=== PATIENT | female | born 1960 | race Caucasian/White ===

== ENCOUNTER 2024-08-14 22:00 | Outpatient (RCR) | payer OTHER, BC, SELFPAY ==
[2024-08-14 22:42] LABS: Alanine Aminotransferase* 14 U/L (4-35); Aspartate Amino Transferase* 26 U/L (12-35); Creatinine* 0.8 mg/dL (0.5-1.5); Estimated Glomerular Filt Rate 82 ml/min
[2024-08-14 22:56] LABS: C Reactive Protein* < 0.5 mg/dL (0.5-1.0)
[2024-08-15 07:00] LABS: Hematocrit* 40.7 % (33.0-51.0); Hemoglobin* 13.6 gm/dL (12.0-16.0); Mean Corpuscular HGB Conc 33 gm/dL (32-36); Mean Corpuscular Hemoglobin 33 pg (26-34); Mean Corpuscular Volume 98 fL (80-100); Red Blood Count* 4.15 m/uL (4.00-5.20); White Blood Count* 4.57 K/uL (4.50-11.00)
[2024-08-15 07:07] LABS: Slide Review Reflex No
== END 2025-07-31 23:59 | disposition home or self-care (01) ==
LOC: NPINS 22:00
PROVIDERS: Visit Provider Internal Medicine Rheumatology
DX: M06.00 Rheumatoid arthritis without rheumatoid factor, unspecified site (principal); Z79.899 Other long term (current) drug therapy
CPT/HCPCS: 82565; 84450; 84460; 85027; 86140

== ENCOUNTER 2024-11-20 13:31 | Outpatient (CLI) | payer OTHER, BC, SELFPAY ==
[2024-11-20 17:01] LABS: Hematocrit 43.2 % (33.0-51.0); Hemoglobin* 14.2 gm/dL (12.0-16.0); Mean Corpuscular HGB Conc 33 gm/dL (32-36); Mean Corpuscular Hemoglobin 32 pg (26-34); Mean Corpuscular Volume 99 fL (80-100); Platelet Count* 281 K/uL (140-440); Red Blood Count 4.38 m/uL (4.00-5.20); White Blood Count* 4.37 K/uL (4.50-11.00)
[2024-11-20 17:13] LABS: Alanine Aminotransferase* 14 U/L (4-35); Aspartate Amino Transferase* 21 U/L (12-35); Creatinine* 0.7 mg/dL (0.5-1.5); Estimated Glomerular Filt Rate 96 ml/min
[2024-11-20 17:19] LABS: C Reactive Protein* < 0.5 mg/dL (0.5-1.0); Slide Review Reflex No
== END 2024-11-20 13:32 | disposition home or self-care (01) ==
LOC: NPINS 13:33
PROVIDERS: PCP Nurse Practitioner Family; Visit Provider Internal Medicine Rheumatology
DX: M05.9 Rheumatoid arthritis with rheumatoid factor, unspecified (principal); Z79.899 Other long term (current) drug therapy
CPT/HCPCS: 82565; 84450; 84460; 85027; 86140

== ENCOUNTER 2025-03-27 10:00 | Outpatient (CLI) | payer OTHER, BC, SELFPAY ==
[2025-03-27 12:49] LABS: Hematocrit 37.8 % (33.0-51.0); Hemoglobin* 12.3 gm/dL (12.0-16.0); Mean Corpuscular HGB Conc 33 gm/dL (32-36); Mean Corpuscular Hemoglobin 32 pg (26-34); Mean Corpuscular Volume 98 fL (80-100); Platelet Count* 315 K/uL (140-440); Red Blood Count 3.86 m/uL (4.00-5.20); White Blood Count* 3.88 K/uL (4.50-11.00)
[2025-03-27 12:50] LABS: Slide Review Reflex No
[2025-03-27 13:18] LABS: Alanine Aminotransferase* 13 U/L (4-35); Aspartate Amino Transferase* 24 U/L (12-35); Creatinine* 0.7 mg/dL (0.5-1.5); Estimated Glomerular Filt Rate 95 ml/min
[2025-03-27 13:25] LABS: C Reactive Protein* < 0.5 mg/dL (0.5-1.0)
--- OUTSIDE RECORDS SUMMARY | 2025-03-30 17:49 | XMS_ITS | Clinical Summary ---
Author Organization [facility] Address [address] [place] [address] Care Team Providers Care Marina Porter Name Role Phone Unavailable Primary Care Provider Unavailabl e Source Comments Patient records contain information from all sites at [facility]. For routine questions regarding patient records, call [phone] during business hours, M-F 8:00 AM - 5:00 PM Central Time. Record requests for emergency care only can be directed to [phone] at any time.[facility] Allergies Active Allergy Reactions Criticality Noted Date Comments Animal Dander Other (see comments) 12/15/2015 Patient states itchy, swollen eyes. Etodolac Itching 12/09/2015 Hydroxychloroquine Itching,Rash 12/09/2015 Iodine Hives (Reselect Reaction),Itching 01/03/2018 Iodine-131 Itching 08/15/2011 Mold Other (see comments) 12/15/2015 Patient states SOB. Penicillins Hives (Reselect Reaction),Rash 12/16/2004 Pollen Extracts Other (see comments) 12/15/2015 Patient states sneezing. Quinolines (8-Hydroxyquinoline) Other (see comments) 06/10/2009 AMINOQUINOLINES ONLY-Mouth sores. NOT Quinolines Sulfa (Sulfonamide Antibiotics) Rash,Hives (Reselect Reaction) 11/16/2008 Medications albuterol 90 mcg/actuation inhaler Inhale 2 puffs every 6 (six) hours as needed. 8 Active fluticasone propionate (FLOVENT HFA) 110 mcg/actuation inhaler Inhale 2 puffs every evening. 8 Active omeprazole (PriLOSEC) [address] capsule Take 20 mg by mouth every evening. 0 Active citalopram (CeleXA) 20 mg tablet Take 20 mg by mouth daily. 3 Active abaloparatide (Tymlos) 80 mcg (3,120 mcg/1.56 mL) injection Inject 0.04 mL (80 mcg total) under the skin daily. 1.56 mL 11 3 Active calcium carbonate (TUMS) 500 mg (200 mg calcium) chewable tablet Chew 2 tablets (400 mg of calcium total) every 2 (two) hours as needed for indigestion. 3 Active polyethylene glycol (MIRALAX) 17 gram powder packetIndications:c onstipation Take 1 packet by mouth daily Indications: constipation . Dissolve each 17 g dose in 240 mLs (8 ounces) of beverage. 3 Active sennosides-docusate sodium (SENOKOT-S) 8.6-50 mg per tablet Take 2 tablets by mouth daily with lunch. 3 Active ondansetron ODT (ZOFRAN-ODT) 4 mg disintegrating tablet Dissolve 1 tablet (4 mg total) in the mouth every 8 (eight) hours as needed for nausea or vomiting. 20 tablet 3 Active methotrexate 2.5 mg tablet Take 4 tablets (10 mg total) by mouth once a week. DO NOT RESTART TAKING UNTIL 08/24/2023. Fridays. 3 Active acetaminophen (TYLENOL) 500 mg tablet Take 2 tablets (1,000 mg total) by mouth every 6 (six) hours. 336 tablet 3 Active celecoxib (CeleBREX) 200 mg capsule Take 1 capsule (200 mg total) by mouth 2 (two) times a day for 14 days. 28 capsule 07/25/2023 3:23 PM CDT 3 Active oxyCODONE (ROXICODONE) 5 mg immediate release tabletIndications:A cute Pain Exception Take 1 tablet (5 mg total) by mouth every 4 (four) hours as needed for moderate pain or score 4-6 of 10 Indication: Acute Pain Exception. 25 tablet 07/25/2023 3:23 PM CDT 3 Active traMADoL (ULTRAM) 50 mg tabletIndications:A cute Pain Exception Take 1 tablet (50 mg total) by mouth every 6 (six) hours as needed for moderate pain or score 4-6 of 10 Indications: Acute Pain Exception. 25 tablet 07/25/2023 3:23 PM CDT 3 Active diazePAM (VALIUM) 2 mg tablet Take 1 tablet (2 mg total) by mouth every 8 (eight) hours as needed for muscle spasms. 25 tablet 3 Active ibuprofen (ADVIL,MOTRIN) 200 mg tablet Take 400 mg by mouth every evening. Active ibuprofen (ADVIL,MOTRIN) 200 mg tablet Take 200 mg by mouth every 6 (six) hours as needed for pain. Active clindamycin (Cleocin) 150 mg capsule Take 150 mg by mouth 3 (three) times a day. 4 Active folic acid 1 mg tablet Take 1 mg by mouth. 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 Fracture history: Compression fracture of T7 and mild anterior wedging of T6 and T8 No history of renal stones History of steroid inhaler. No history of systemic glucocorticoid therapy. She has rheumatoid arthritis, which is treated with methotrexate. No history of tobacco use. Reports rare alcohol use. She has had a 2 loss from maximum height. No family history of osteoporosis or parental history of hip fracture. 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 3 month schedule of CBCs 11/10 Rheumatology following CBC as on methytrexate and checked recently and normal 2009 (Problem list name updated by automated process. Provider to review and confirm.) Arthritis Rheumatoid 03/29/2009 Asthma Mild Persistent 12/15/2005 Overview (07/06/2023): well controlled on FLovent 12/15/2005 AAP done Asthma since age 29. Family History Medical History Relation Name Comments Coronary artery disease Father Jayden Depression Father Jayden Hypertension Father Jayden Skin cancer Father Jayden Breast cancer Maternal Grandmother Grandmother Migraines Mother Gladys Rheum arthritis Paternal Grandmother Elvira Relation Name Status Comments Father Jayden Maternal Grandmother Grandmother Mother Gladys Paternal Grandmother Elvira Social History Tobacco Use Types Packs/Day Years Used Date Smoking Tobacco: Never Smokeless Tobacco: Never Tobacco Cessation:Counseling Given: Not Answered Alcohol Use Standard Drinks/Week Comments Not Currently 0 (1 standard drink = 0.6 oz pur e alcohol) [facility] Utilities Answer Date Recorded In the past 12 months has e [employer], gas, oil, or water [employer] threatened to shut off services in your home? No 07/22/2024 Humiliation, Afraid, Rape, and Kick questionnair e Answer Date Recorded Within the last year, have y ou been afraid of your partner or ex-partner? No 04/24/2023 Within the last year, have y ou been humiliated or emotionally abused in other ways by your partner or ex-partner? No Within the last year, have y ou been kicked, hit, slapped, or otherwise physically hurt by your partner or ex-partner? No 04/24/2023 Within the last year, have y ou been raped or forced to have any kind of sexual activity by your partner or ex-partner? No 04/24/2023 Hunger Vital Sign Answer Date Recorded Within the past 12 months, y ou worried that your food would run out before you got the money to buy more. Never true 07/22/20 24 Within the past 12 months, t he food you bought just didn't last and you didn't have money to get more. Never true 07/22/2024 PRAPARE - Transportation Answer Date Re corded In the past 12 months, has l ack of transportation kept you from medical appointments or from getting medications? No 07/02 In the past 12 months, has l ack of transportation kept you from meetings, work, or from getting things needed for daily living? No 07/22/2024 Housing Stability Answer Date Recorded What is your living situation today? 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 Gender Identity Female 04/24/2023 8:39 AM CDT Sexual Orientation Straight 04/24/2023 8: 39 AM CDT Last Filed Vital Signs Vital Sign Reading Time Taken Comments Blood Pressure 128/82 07/25/2023 2:29 PM CDT Pulse 73 07/25/2023 2:29 PM CDT Temperature 36.8 C (98.2 F) 07/25/2023 2:29 PM CDT Respiratory Rate 16 07/25/2023 2:29 PM CDT Oxygen Saturation 97% 07/25/2023 2:29 PM CDT Inhaled Oxygen Concentration - - Weight 67.1 kg (147 lb 14.9 oz) 07/24/2023 6:07 AM CDT Height 172 cm (5' 7.72) 07/24/2023 6:07 AM CDT Body Mass Index 22.68 07/24/2023 6:07 AM CDT Plan of Treatment Health Maintenance Due Date Last Done Comments CT Colonography 1958 Cologuard 1958 Depression Monitoring (PHQ-9) 1958 FIT 1958 Lipid (Cholesterol) Screening 1958 Pneumococcal vaccine (50+ years) (1 of 2 - PCV) 1977 Zoster Vaccines (1 of 2) 1977 RSV vaccine - (32-36 weeks) or 60+ years (1 - Risk 60-74 years 1-dose series) 2018 Colonoscopy 10/17/2020 10/17/2010 Colorectal Cancer Screening 10/17/2020 Mammogram 08/09/2023 08/09/2022, 1106/2022, 08/01/2021, Additional history exists COVID-19 Vaccine (4 - 2024-25 season) 2024 10/11/2021, 11/09/2020, 10/12/2020 Influenza Vaccine (#1) 2024 9, 09/02/2014, 08/18/2013, Additional history exists Depression Monitoring (PHQ-9 for quality tracking) 10/01/2024 Fall Risk Screen (Annual) 10/01/2024 Fasting Glucose for Diabetes Screening 07/25/2026 07/25/2023, 07/17/2023, 07/23/2019 DTaP,Tdap,and Td Vaccines (3 - Td or Tdap) 11/06/2028 11/06/2018, 10/07/2007 Hepatitis C Screening Completed 02/03/2009 Cervical/Vaginal Cancer Screening Discontinued 11/06/2018 HPV Vaccines Aged Out No longer eligi ble based on patient's age to complete this topic IPV Vaccines Aged Out No longer eligi ble based on patient's age to complete this topic Medical Devices Implanted Type Area Delivery Director Device Identifier Shelf Expiration Date Model / Serial / Lot Wax Bn Nblbl 2.5gr - [id number] Implanted:Qty: 1 on 07/24/2023 by Janis Mcmahan M.D. at [facility] Hardware e.g. pins/screws/ rods [employer] 901 / NA / NA Spn Scrw Cnt St 2.6x7 - [id number] Implanted:Qty: 6 on 07/24/2023 by Janis Mcmahan M.D. at [facility] Hardware e.g. pins/screws/ rods [employer] 853-467 / / Spn Scrw Cnt St 2.6x5 - [id number] Implanted:Qty: 6 on 07/24/2023 by Janis Mcmahan M.D. at [facility] Hardware e.g. pins/screws/ rods [employer] [id number] / / Spn Plt Cnt Od 12 - [id number] Implanted:Qty: 3 on 07/24/2023 by Janis Mcmahan M.D. at [facility] Hardware e.g. pins/screws/ rods [employer] [id number] / / Procedures Procedure Name Priority Date/Time Associated Diagnosis Comments BASIC METABOLIC PANEL, S/P Routine 07/25/2023 6:00 AM CDT from Last 3 Months or Most Recently Relevant to Health Maintenance Results * (ABNORMAL) Basic Metabolic Panel (07/25/2023 6:00 AM CDT) Potassium, S 4.3 3.6 - 5.2 mmol/L 07/25/2023 7:16 AM CDT DTL Sodium, S 139 135 - 145 mmol/L 07/25/2023 7:16 AM CDT DTL Chloride, S 105 98 - 107 mmol/L 07/25/2023 7:16 AM CDT DTL Bicarbonate, S 25 22 - 29 mmol/L 07/25/2023 7:16 AM CDT DTL Anion Gap 9 7 - 15 07/25/2023 7:16 AM CDT DTL BUN (Blood Urea Nitrogen), S 10 6 - 21 mg/dL 07/25/2023 7:16 AM CDT DTL Creatinine 0.82 0.59 - 1.04 mg/dL 07/25/2023 7:16 AM CDT DTL Estimated GFR (eGFR) 80 >=60 mL/min/BSA 07/25/2023 7:16 AM CDT DTL Comment: Estimated GFR calculated using the 2020 CKD_EPI creatinine equation. Calcium, Total, S 8.6(L) 8.8 - 10.2 mg/dL 07/25/2023 7:16 AM CDT DTL Glucose, S 99 70 - 140 mg/dL 07/25/2023 7:16 AM CDT DTL Blood (Blood, Venous) 07/25/2023 6:00 AM CDT 07/25/2023 6:49 AM CDT Roberto Bello M.D. LAB BLOOD ADD-ON Final Re sult [facility] [address] [place] [address], [place] DTL [facility] [address] [place] [address] from Last 3 Months or Most Recently Relevant to Health Maintenance Additional Health Concerns Infection Onset Date Last Indicated Protective Environment 01/08/2023 Insurance [facility] [employer] Advance Directives For more information, please contact: [phone] * Full Code (Latest Code Status on File) Date Activated Date Inactivated Comments 07/24/2023 3:03 PM 07/25/2023 5:29 PM Question Answer Comments Full Code: Discussed
--- OUTSIDE RECORDS SUMMARY | 2025-03-30 17:49 | XMS_ITS | Encounter Summary ---
Author Organization [facility] Address [address] [place] [address] Care Team Providers Care Waxing Machine Operator Name Role Phone Unavailable Primary Care Provider Unavailabl e Encounter Details Date Type Department Care Team (Late st Contact Info) Description 06/30/2009 Historical Ophthalmology [facility] Ugo Littlejohn M.D. 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 - 06/30/2009 9:52 AM CDT Eye General CHIEF COMPLAINT Patient describes floaters in both eyes. HISTORY OF PRESENT ILLNESS The patient describes floaters in both eyes when outside or in bright light, several years, occasional, mild and remains unchanged. Patient was taking plaquenil for 2 weeks time but has been off of this for a month. The patient describes decreased near vision with out glasses, both eyes for the past one year, which is occasional, mild. Patient denies ocular pain, flashes of light or diplopia. IMPRESSION / REPORT / PLAN #1 myopia #2 presbyopia No signs of toxicity to plaquenil, she was only on this short time. Discussed. Bump up readers as needed,. DIAGNOSIS #1 myopia #2 presbyopia CD Reports - EYEGEN Id: [id number] Status: Fnl documented in this encounter Plan of Treatment Not on file documented as of this encounter Visit Diagnoses Not on filedocumented in this encounter Additional Health Concerns Infection Onset Date Last Indicated Resolved Time Protective Environment 01/08/2023 01/08/2023 documented as of this encounter
--- OUTSIDE RECORDS SUMMARY | 2025-03-30 17:49 | XMS_ITS | Encounter Summary ---
Author Organization [facility] Address [address] [place] [address] Care Team Providers Care Cube Machine Tender Name Role Phone Bonnie Nance MD Primary Care Provider + [phone] Heidi Lugo DNP Primary Care Provider Aracely Saleh APRN MEDICAL MASSAGE THERAPIST Primary Care Provider Clemente FungC Primary Care Provider Sheron steel No Ref-Primary, Physician Primary Care Provider James Llamas MD Unavailable + [phone] Hina Mendoza APRN MEDICAL MASSAGE THERAPIST Unavailable [phone] Hina Mendoza APRN MEDICAL MASSAGE THERAPIST Unavailable [phone] James Llamas MD Unavailable + [phone] Alyse White APRN MEDICAL MASSAGE THERAPIST Unavailable [phone] Jeanne Mazariegos MD Primary Care Provider + [phone] Hina Mendoza APRN MEDICAL MASSAGE THERAPIST Unavailable [phone] Alyse White APRN MEDICAL MASSAGE THERAPIST Unavailable +[phone] Hina Mendoza APRN MEDICAL MASSAGE THERAPIST Unavailable [phone] Alyse White APRN MEDICAL MASSAGE THERAPIST Unavailable [phone] Alyse White APRN MEDICAL MASSAGE THERAPIST Unavailable [phone] Encounter Details Date Type Department Care Team (Late st Contact Info) Description 12/30/2004 Abstract [facility] RESEARCH SOFTWARE ENGINEER Clinic Areli Kimball, [place] [address] Social History Tobacco Use Types Packs/Day Years Used Date Smoking Tobacco: Never Alcohol Use Standard Drinks/Week Comments Yes 0 (1 standard drink = 0.6 oz pur e alcohol) rare Comments No Sex and Gender Information Value Date Recorded Sex Assigned at Not on file 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 Gender Identity Not on file Sexual Orientation Not on file 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 file Not on file documented as of this encounter Plan of Treatment Not on file documented as of this encounter Visit Diagnoses Not on filedocumented in this encounter Care Teams Cube Machine Tender Relationship Specialty Start Date End Date Bonnie Nance MD [address] [place] [address] PCP - General 06/24/04 05/20/12 Heidi Lugo DNP [address] [place] [address] PCP - General Family Practice 05/21/12 12/01/14 Aracely Saleh APRN CNP [address] [place] [address] PCP - General Nurse Practitioner - Adult Health 12/02/14 08/03/16 Clemente Fung PA-C [address] [place] [address] PCP - General Physician Organic Section Technical Lead 08/04/16 10/01/17 No Ref-Primary, Physician PCP - General 05/22/18 05/19/20 [place] [address] [place] [address] PCP - Assigned PCP 06/16/18 11/09/18 Hina Mendoza APRN MEDICAL MASSAGE THERAPIST [address] [place] [address] PCP - Assigned PCP 11/10/18 12/03/18 [place] [address] [place] [address] PCP - General 05/20/20 Hina Mendoza APRN MEDICAL MASSAGE THERAPIST [address] [place] [address] Assigned PCP 11/10/18 02/21/20 James Llamas MD [facility] [place] [address] Assigned PCP 06/16/18 11/09/18 Alyse White APRN MEDICAL MASSAGE THERAPIST [address] [place] [address] Assigned PCP 02/22/20 02/23/21 Hina Mendoza APRN MEDICAL MASSAGE THERAPIST [address] [place] [address], [place] [address] Assigned PCP 02/24/21 09/24/21 Alyse White APRN MEDICAL MASSAGE THERAPIST [address] [place] [address] Assigned PCP 09/25/21 10/08/21 Hina Mendoza APRN MEDICAL MASSAGE THERAPIST [address] [place] [address] Assigned PCP 10/09/21 11/12/21 Alyse White APRN MEDICAL MASSAGE THERAPIST [address] [place] [address] Assigned PCP 11/13/21 09/15/22 Alyse White APRN MEDICAL MASSAGE THERAPIST [address] [place] [address] Assigned PCP 11/25/22 02/16/23 documented as of this encounter
--- OUTSIDE RECORDS SUMMARY | 2025-03-30 17:49 | XMS_ITS | Encounter Summary ---
Author Organization [facility] Address [address] [place] [address] Care Team Providers Care Branch Service Representative Name Role Phone Bonnie Nance MD Primary Care Provider + [phone] Heidi Lugo DNP Primary Care Provider Aracely Saleh APRN ATOMIC PHYSICS TEACHER Primary Care Provider Clemente FungC Primary Care Provider Sheron steel No Ref-Primary, Physician Primary Care Provider James Llaams MD Unavailable + [phone] Hina Mendoza APRN ATOMIC PHYSICS TEACHER Unavailable [phone] Hina Mendoza APRN ATOMIC PHYSICS TEACHER Unavailable [phone] James Llamas MD Unavailable + [phone] Alyse White APRN ATOMIC PHYSICS TEACHER Unavailable +[phone] Jeanne Mazariegos MD Primary Care Provider + [phone] Hina Mendoza APRN ATOMIC PHYSICS TEACHER Unavailable [phone] Alyse White APRN ATOMIC PHYSICS TEACHER Unavailable [phone] Hina Mendoza APRN ATOMIC PHYSICS TEACHER Unavailable [phone] Alyse White APRN ATOMIC PHYSICS TEACHER Unavailable [phone] Alyse White APRN ATOMIC PHYSICS TEACHER Unavailable [phone] Encounter Details Date Type Department Care Team (Late st Contact Info) Description 12/16/2004 Abstract [facility] RECREATION PROFESSOR Clinic Yen Roman MD Social History Tobacco Use Types Packs/Day Years Used Date Smoking Tobacco: Never Assessed Comments Unknown Sex and Gender Information Value Date Recorded Sex Assigned at Not on file 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 Gender Identity Not on file Sexual Orientation Not on file documented as of this encounter Plan of Treatment Not on file documented as of this encounter Visit Diagnoses Not on filedocumented in this encounter Care Teams Branch Service Representative Relationship Specialty Start Date End Date Bonnie Nance MD [address] [place] [address] PCP - General 06/24/04 05/20/12 Heidi Lugo DNP [address] [place] [address] PCP - General Family Practice 05/21/12 12/01/14 Aracely Saleh APRN ATOMIC PHYSICS TEACHER [address] [place] [address] PCP - General Nurse Practitioner - Adult Health 12/02/14 08/03/16 Clemente Fung PA-C [address] [place] [address] PCP - General Physician Licensed Staff Mft 08/04/16 10/01/17 No Ref-Primary, Physician PCP - General 05/22/18 05/19/20 James Llamas MD [address] [place] [address] PCP - Assigned PCP 06/16/18 11/09/18 Hina Mendoza APRN ATOMIC PHYSICS TEACHER [address] [place] [address] PCP - Assigned PCP 11/10/18 12/03/18 [place] [address] [address] [place] [address] PCP - General 05/20/20 Hina Mendoza APRN ATOMIC PHYSICS TEACHER [address] [place] [address], [place] [address] Assigned PCP 11/10/18 02/21/20 James Llamas MD [address] [place] [address] Assigned PCP 06/16/18 11/09/18 Alyse White APRN ATOMIC PHYSICS TEACHER [address] [place] [address], [place] [address] Assigned PCP 02/22/20 02/23/21 Hina Mendoza APRN ATOMIC PHYSICS TEACHER [address] [place] [address], [place] [address] Assigned PCP 02/24/21 09/24/21 Alyse White APRN ATOMIC PHYSICS TEACHER [address] [place] [address], [place] [address] Assigned PCP 09/25/21 10/08/21 Hina Mendoza APRN ATOMIC PHYSICS TEACHER [address] [place] [address], [place] [address] Assigned PCP 10/09/21 11/12/21 Alyse White APRN ATOMIC PHYSICS TEACHER [address] [place] [address], [place] [address] Assigned PCP 11/13/21 09/15/22 Alyse White APRN [facility] [address] [place] [address] Assigned PCP 11/25/22 02/16/23 documented as of this encounter
--- OUTSIDE RECORDS SUMMARY | 2025-03-30 17:49 | XMS_ITS | Encounter Summary ---
Author Organization [facility] Address [address] [place] [address] Care Team Providers Care Mash Filter Operator Name Role Phone Bonnie Nance MD Primary Care Provider [phone] Heidi Lugo DNP Primary Care Provider Aracely Saleh APRN DUST HANDLER Primary Care Provider Clemente FungC Primary Care Provider Sheron steel No Ref-Primary, Physician Primary Care Provider James Llamas MD Unavailable + [phone] Hina Mendoza APRN DUST HANDLER Unavailable [phone] Hina Mendoza APRN DUST HANDLER Unavailable [phone] James Llamas MD Unavailable + [phone] Alyse White APRN DUST HANDLER Unavailable [phone] Jeanne Mazariegos MD Primary Care Provider + [phone] Hina Mendoza APRN DUST HANDLER Unavailable [phone] Alyse White APRN DUST HANDLER Unavailable [phone] Hina Mendoza APRN DUST HANDLER Unavailable [phone] Alyse White APRN DUST HANDLER Unavailable [phone] Alyse White APRN DUST HANDLER Unavailable [phone] Encounter Details Date Type Department Care Team (Late st Contact Info) Description 08/02/2011 MyC Medical Advice [facility] [address] [place] [address] Stas Sanz Social History Tobacco Use Types Packs/Day Years Used Date Smoking Tobacco: Never Alcohol Use Standard Drinks/Week Comments Yes 0 (1 standard drink = 0.6 oz pur e alcohol) wine hardly ever once a year Comments No Sex and Gender Information Value Date Recorded Sex Assigned at Not on file 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 Gender Identity Not on file Sexual Orientation Not on file 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 file Not on file documented as of this encounter Plan of Treatment Not on file documented as of this encounter Visit Diagnoses Not on filedocumented in this encounter Care Teams Mash Filter Operator Relationship Specialty Start Date End Date Bonnie Nance MD [address] [place] [address] PCP - General 06/24/04 05/20/12 Heidi Lugo DNP [address] [place] [address] PCP - General Family Practice 05/21/12 12/01/14 Aracely Saleh APRN CNP [address] [place] [address] PCP - General Nurse Practitioner - Adult Health 12/02/14 08/03/16 Clemente Fung PA-C [address] [place] [address] PCP - General Physician Anodic Treater 08/04/16 10/01/17 No Ref-Primary, Physician PCP - General 05/22/18 05/19/20 James Llamas MD [address] [place] [address] PCP - Assigned PCP 06/16/18 11/09/18 Hina Mendoza APRN DUST HANDLER [address] [place] [address], [place] [address] PCP - Assigned PCP 11/10/18 12/03/18 [place] [address] [place] [address] PCP - General 05/20/20 Hina Mendoza APRN DUST HANDLER [address] [place] [address], [place] [address] Assigned PCP 11/10/18 02/21/20 James Llamas MD [facility] [place] [address] Assigned PCP 06/16/18 11/09/18 Alyse White APRN DUST HANDLER [address] [place] [address], [place] [address] Assigned PCP 02/22/20 02/23/21 Hina Mendoza APRN DUST HANDLER [address] [place] [address], [place] [address] Assigned PCP 02/24/21 09/24/21 Alyse White APRN DUST HANDLER [address] [place] [address], [place] [address] Assigned PCP 09/25/21 10/08/21 Hina Mendoza APRN DUST HANDLER [address] [place] [address], [place] [address] Assigned PCP 10/09/21 11/12/21 Alyse White APRN DUST HANDLER [address] [place] [address] Assigned PCP 11/13/21 09/15/22 Alyse White APRN DUST HANDLER [address] [place] [address] Assigned PCP 11/25/22 02/16/23 documented as of this encounter
--- OUTSIDE RECORDS SUMMARY | 2025-03-30 17:49 | XMS_ITS | Encounter Summary ---
Author Organization [facility] Address [address] [place] [address] Care Team Providers Care Wire Fence Builder Name Role Phone No Ref-Primary, Physician Primary Care Provider James Llamas MD Unavailable [phone] Hina Mendoza APRN MEDIA LIBRARIAN Unavailable [phone] Hina Mendoza APRN MEDIA LIBRARIAN Unavailable [phone] James Llamas MD Unavailable [phone] Alyse White APRN MEDIA LIBRARIAN Unavailable Jeanne Mazariegos MD Primary Care Provider [phone] Hina Mendoza APRN MEDIA LIBRARIAN Unavailable Alyse White APRN MEDIA LIBRARIAN Unavailable Hina Mendoza APRN MEDIA LIBRARIAN Unavailable Alyse White APRN MEDIA LIBRARIAN Unavailable [phone] lAyse White APRN MEDIA LIBRARIAN Unavailable Encounter Details Date Type Department Care Team (Late st Contact Info) Description 06/12/2018 [facility] [address] [place] [phone] James Llamas MD [address] [place], [place] [id number] Social History Tobacco Use Types Packs/Day Years Used Date Smoking Tobacco: Never Smokeless Tobacco: Never Alcohol Use Standard Drinks/Week Comments Yes 0 (1 standard drink = 0.6 oz pur e alcohol) wine hardly ever once a year Comments No Sex and Gender Information Value Date Recorded Sex Assigned at Not on file 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 Gender Identity Not on file Sexual Orientation Not on file 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 file Not on file documented as of this encounter Plan of Treatment Not on file documented as of this encounter Visit Diagnoses Not on filedocumented in this encounter Additional Health Concerns Assessment Noted Time PHQ-9 Depression Total Score: 2 06/13/20 18 7:18 AM CDT documented as of this encounter Care Teams Wire Fence Builder Relationship Specialty Start Date End Date No Ref-Primary, Physician PCP - General 05/22/18 05/19/20 James Llamas MD [address] [place] [address] PCP - Assigned PCP 06/16/18 11/09/18 Hina Mendoza APRN MEDIA LIBRARIAN [address] [place] [address] PCP - Assigned PCP 11/10/18 12/03/18 [place] [address] [place] [address] PCP - General 05/20/20 Hina Mendoza APRN MEDIA LIBRARIAN [address] [place] [address] Assigned PCP 11/10/18 02/21/20 James Llamas MD [address] [place] [address] Assigned PCP 06/16/18 11/09/18 Alyse White APRN MEDIA LIBRARIAN [address] [place] [address], [place] [address] Assigned PCP 02/22/20 02/23/21 Hina Mendoza APRN MEDIA LIBRARIAN [address] [place] [address], [place] [address] Assigned PCP 02/24/21 09/24/21 Alyse White APRN MEDIA LIBRARIAN [address] [place] [address], [place] [address] Assigned PCP 09/25/21 10/08/21 Hina Mendoza APRN MEDIA LIBRARIAN [address] [place] [address], [place] [address] Assigned PCP 10/09/21 11/12/21 Alyse White APRN MEDIA LIBRARIAN [address] [place] [address], [place] [address] Assigned PCP 11/13/21 09/15/22 Alyse White APRN MEDIA LIBRARIAN [address] [place] [address], [place] [address] Assigned PCP 11/25/22 02/16/23 documented as of this encounter
--- OUTSIDE RECORDS SUMMARY | 2025-03-30 17:49 | XMS_ITS | Clinical Summary ---
Author Organization [facility] Address [address] [place] [id number] Care Team Providers Care Nurse Practitioner Adult Name Role Phone Jeanne Mazariegos MD Primary Care Provider [phone] Allergies Active Allergy Reactions Criticality Noted Date Comments Hydroxychloroquine Itching 01/03/2018 Iodine-131 Itching 08/15/2011 Penicillins Hives 12/16/2004 Aminoquinolines Rash 06/10/2009 Mouth sores Sulfa Antibiotics Rash 11/16/2008 Medications MOTRIN IB 200 MG OR TABS Reported on 11/17/2016 Active albuterol (PROAIR HFA/PROVENTIL HFA/VENTOLIN HFA) 108 (90 Base) MCG/ACT inhalerIndicatio ns:Mild persistent asthma without complication Inhale 2 puffs into the lungs every 6 hours as needed for shortness of breath / dyspnea 1 Inhaler 2 8 Active Additional Information Patient not taking.Reported on 03/27/2020 fluticasone (FLOVENT HFA) 110 MCG/ACT InhalerIndicatio ns:Mild persistent asthma without complication INHALE 2 PUFFS INTO THE LUNGS 2 TIMES DAILY 12 g 11 8 Active citalopram (CELEXA) 20 MG tabletIndication s:Major depressive disorder, recurrent episode, mild TAKE ONE TABLET BY MOUTH ONCE DAILY 30 tablet 9 Active methotrexate 2.5 MG tablet 0 Active omeprazole (PRILOSEC) [address] capsule 0 Active HYDROcodone-acet aminophen (NORCO) 5-325 MG tablet 0 Active ASPIRIN ADULT LOW STRENGTH 81 MG EC tablet 0 Active valACYclovir (VALTREX) 1000 mg tabletIndication s:Herpes zoster without complication Take 1 tablet (1,000 mg) by mouth 3 times daily for 7 days 21 tablet 0 Active hydrOXYzine (VISTARIL) 25 MG capsuleIndicatio ns:Herpes zoster without complication Take 1 capsule (25 mg) by mouth 4 times daily as needed for other (with pain medication) 30 capsule 0 Active Active Problems Problem Noted Date Diagnosed Date PVC's (premature ventricular contractions) 06/12 Major depressive disorder, recurrent episode, mi ld 06/12/2018 GERD (gastroesophageal reflux disease) 2 Mild major depression 12/22/2010 Cataract 12/12/2010 Overview (06/04/2013): Utility update for deleted IMO code Imo Update utility HYPERLIPIDEMIA LDL GOAL <160 07/31/2010 Idiopathic thrombocytopenic purpura 05/20/2009 Overview (07/01/2012): immune thrombocytopenia - mild, when platelets become less than 30,000 intervention- such as transfusion, petechiae, bleeding gums, epistaxis as clues she might look for to detect whether her platelets are low. 3 month schedule of CBCs 11/10 Rheumatology following CBC as on methytrexate and checked recently and normal 2009 (Problem list name updated by automated process. Provider to review and confirm.) RA (rheumatoid arthritis) 04/02/2009 Overview (03/25/2010): Diagnosed 2007 Methotrexate- [employer] Associate. Dr. Dick Cuello [place] Vitiligo 08/28/2008 Varicose veins 03/05/2008 Overview (03/25/2010): Lazer therapy Vein Stripping Raynaud's syndrome 04/19/2007 Mild persistent asthma 12/15/2005 Overview (03/25/2010): well controlled on FLovent 12/15/2005 AAP done Asthma since age 29. 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 Provider to review Immunizations Immunization Administration Dates Next Due Influenza (IIV3) PF 07/15/2011, 9,11/01/2006,2003 Influenza Vaccine 18-64 (Flublok) 11/06/2018 Influenza Vaccine >6 months,quad, PF 09/02/2014 TD,PF 7+ (Tenivac) 11/06/2018 TDAP Vaccine (Adacel) 10/07/2007 Family History Medical History Relation Comments Arthritis Father C.A.D. Father MD at age 53 Depression Father Hypertension Father Breast Cancer Maternal Aunt great aunt Arthritis Maternal Grandfather C.A.D. Maternal Grandfather Breast Cancer Maternal Grandmother Cerebrovascular Disease Mother due to m edication?? Connective Tissue Disorder Mother scler oderma Arthritis Paternal Grandmother rheumatoid Connective Tissue Disorder Sister 1 scler oderma/lupus/sjogren C.A.D. Sister 2 same sister as a jose Cerebrovascular Disease Sister 3 with lup us Relation Status Comments Father (Age 79) Maternal Aunt Maternal Grandfather Maternal Grandmother Mother (Age 62) scleroderma Paternal Grandfather Paternal Grandmother Sister 1 Alive Sister 2 Sister 3 Son 1 Alive Son 2 Alive Son 3 Alive Son 4 Alive Son 5 Alive Social History Tobacco Use Types Packs/Day Years Used Date Smoking Tobacco: Never Smokeless Tobacco: Never Alcohol Use Standard Drinks/Week Comments Yes 0 (1 standard drink = 0.6 oz pur e alcohol) wine hardly ever once a year PHQ-2 Answer Date Recorded PHQ-2 Score 0 11/06/2018 Adolescent Education Answer Date Record ed Getting School Help Needed Not on file 07/08 Comments No Sex and Gender Information Value Date Recorded Sex Assigned at Not on file 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 Gender Identity Not on file Sexual Orientation Not on file 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 file Not on file Last Filed Vital Signs Vital Sign Reading Time Taken Comments Blood Pressure 120/80 03/27/2020 9:32 AM CDT Pulse 83 03/27/2020 9:32 AM CDT Temperature 37.5 C (99.5 F) 03/27/2020 9:32 AM CDT Respiratory Rate 16 03/27/2020 9:32 AM CDT Oxygen Saturation 100% 03/27/2020 9:3 2 AM CDT Inhaled Oxygen Concentration - - Weight 65.8 kg (145 lb) 03/27/2020 9:32 AM CDT Taken from previous(knee Brace) Height 172.7 cm (5' 8) 03/27/2020 9:32 AM CDT Body Mass Index 22.05 03/27/2020 9:32 AM CDT Plan of Treatment Health Maintenance Due Date Last Done Comments ADVANCE CARE PLANNING 1960 ANNUAL REVIEW OF HM ORDERS 1960 CT COLONOGRAPHY 1960 FIT 1960 FLEX SIG 1960 sDNA (Cologuard) 1960 PNEUMOCOCCAL VACCINE 50+ YEARS (1 of 2 - PCV) 1977 ZOSTER VACCINE (1 of 2) 1977 LIPID 07/14/2016 07/14/2015, 11/01, 08/05/2007, Additional history exists RSV VACCINE (1 - Risk 60-74 years 1-dose series) 2018 ASTHMA CONTROL TEST 12/10/2018 06/12/2018, 08/08/2016, 07/14/2015 PHQ-9 12/10/2018 06/12/2018, 04/2 01/2018, 08/08/2016, Additional history exists ASTHMA ACTION PLAN 11/06/2019 11/06/2018, 1 10/08/2015, 08/08/2016, Additional history exists COLONOSCOPY 10/17/2020 10/17/2010, 10/01, 01/03/2010, Additional history exists COLORECTAL CANCER SCREENING 10/17/2020 DEXA 12/14/2021 12/14/2006 DIABETES SCREENING 07/23/2022 07/23/2019, 0 06/13/2018, 05/19/2018, Additional history exists FALL RISK ASSESSMENT 12/06/2023 MEDICARE ANNUAL WELLNESS VISIT 12/06/2023 11/06/2018, 12/02/2014, 10/26/2011, Additional history exists COVID-19 VACCINE ( season) 2024 10/11/2021, 11/09/2020, 10/12/2020 MAMMO SCREENING 08/09/2024 08/09/2022, 10/2020, 06/02/2020, Additional history exists INFLUENZA VACCINE (Season Ended) 2025 11/06/2018, 09/02/2014, 08/18/2013, Additional history exists DTAP/TDAP/TD VACCINE (3 - Td or Tdap) 11/06/2028 11/06/2018, 10/07/2007 DEPRESSION ACTION PLAN Completed 6, 07/14/2015, 06/03/2014, Additional history exists HEPATITIS C SCREENING Completed 08/08/2016 PAP Discontinued 11/06/2018, 12/2014, 12/02/2014, Additional history exists HPV VACCINE Aged Out No longer eligi ble based on patient's age to complete this topic MENINGITIS VACCINE Aged Out No longer eligible based on patient's age to complete this topic Procedures Procedure Name Priority Date/Time Associated Diagnosis Comments MA SCREENING BILATERAL W/ SOREN Routine 08/09/2022 1:52 PM GRIT REMOVAL OPERATOR Visit for screening mammogram BASIC METABOLIC PANEL STAT 07/23/2019 2:07 AM CDT PAP IMAGED THIN LAYER SCREEN Routine 11/06/2018 10:29 AM GRIT REMOVAL OPERATOR Encounter for gynecological examination without abnormal finding HEPATITIS C SCREEN REFLEX TO HCV RNA QUANT AND GENOTYPE Routine 08/08/2016 10:44 AM GRIT REMOVAL OPERATOR Need for hepatitis C screening test ASTHMA ACTION PLAN Routine 08/08/2016 10 :22 AM GRIT REMOVAL OPERATOR LIPID REFLEX TO DIRECT LDL PANEL Routine 07/14/2015 8:08 AM CDT Routine general medical examination at a [facility] care facility COLONOSCOPY Routine 10/17/2010 10:52 AM GRIT REMOVAL OPERATOR HC DEXA BONE DENSITY, >=1 SITE, AXIAL SKELETON Routine 12/14/2006 9:56 AM CDT from Last 3 Months or Most Recently Relevant to Health Maintenance Results * MA Screen Bilateral w/Soren (08/09/2022 1:52 PM GRIT REMOVAL OPERATOR) Anatomical Region Laterality Modality Breast Bilateral Mammography Impressions 08/09/2022 4:02 PM GRIT REMOVAL OPERATOR IMPRESSION: ACR BI-RADS Category 1: Negative RECOMMENDED FOLLOW-UP: Annual routine screening mammogram The results and recommendations of this examination will be communicated to the patient. Jack Álvarez MD Narrative 08/09/2022 4:02 PM GRIT REMOVAL OPERATOR BILATERAL FULL FIELD DIGITAL SCREENING MAMMOGRAM WITH TOMOSYNTHESIS Performed on: 08/09/22 Compared to: 08/01/2021, 06/02/2020, 11/13/2018, and 05/23/2017 Technique: This study was evaluated with the assistance of Computer-Aided Detection. Breast Tomosynthesis was used in interpretation. Findings: The breasts have scattered areas of fibroglandular density. There is no radiographic evidence of malignancy. us Jeanne Mazariegos MD IMG MAMMOGRAPHY ORDERABLES Rica l Result * Basic metabolic panel (07/23/2019 2:07 AM CDT) Sodium 137 133 - 144 mmol/L 07/23/2019 2:23 AM CDT [facility] Potassium 4.0 3.4 - 5.3 mmol/L 07/23/2019 2:23 AM CDT [facility] Chloride 106 94 - 109 mmol/L 07/23/2019 2:23 AM CDT [facility] Carbon Dioxide 28 20 - 32 mmol/L 07/23/2019 2:28 AM CDT [facility] Anion Gap 3 3 - 14 mmol/L 07/23/2019 2:28 AM CDT [facility] Glucose 95 70 - 99 mg/dL 07/23/2019 2:28 AM CDT [facility] Urea Nitrogen 22 7 - 30 mg/dL 07/23/2019 2:28 AM CDT [facility] Creatinine 0.91 0.52 - 1.04 mg/dL 07/23/2019 2:28 AM CDT [facility] GFR Estimate 68 >60 mL/min/{1. 73_m2} 07/23/2019 2:28 AM CDT [facility] Comment: Non GFR Calc Starting 09/17/2018, serum creatinine based estimated GFR (eGFR) will be calculated using the Chronic Kidney Disease Epidemiology Collaboration (CKD-EPI) equation. GFR Estimate If Black 79 >60 mL/min/{1. 73_m2} 07/23/2019 2:28 AM CDT [facility] Comment: GFR Calc Starting 09/17/2018, serum creatinine based estimated GFR (eGFR) will be calculated using the Chronic Kidney Disease Epidemiology Collaboration (CKD-EPI) equation. Calcium 8.9 8.5 - 10.1 mg/dL 07/23/2019 2:28 AM CDT [facility] Blood specimen (specimen) 07/23/2019 2:07 AM CDT 07/23/2019 2:10 AM CDT us Long Ibarra MD LAB - BLOOD ORDERABLES Fin al Result [facility] [address] [place] [address] * Pap imaged thin layer screen with HPV - recommended age 30 - 65 (11/06/2018 10:29 AM GRIT REMOVAL OPERATOR) PAP ADAIR Clayton Report Patient Name: YASIR KAUFFMAN MR#: [id number] Specimen #: [id number] Collected: 11/06/2018 Received: 11/07/2018 Reported: 11/11/2018 09:05 Ordering Phy(s): HINA MENDOZA For improved result formatting, select 'View Enhanced Report Format' under Linked Documents section. SPECIMEN/STAIN PROCESS: Pap imaged thin layer prep screening (Surepath, FocalPoint with guided screening) Pap-Cyto x 1, HPV ordered x 1 SOURCE: Cervical, endocervical Pap imaged thin layer prep screening (Surepath, FocalPoint with guided screening) SPECIMEN ADEQUACY: Satisfactory for evaluation. -Transformation zone component present. CYTOLOGIC INTERPRETATION: Negative for intraepithelial lesion or malignancy Electronically signed out by: BALBIR Huston (ASCP) Processed and screened at [facility] CLINICAL HISTORY: LMP: 12/13/04 A previous normal pap Date of Last Pap: 12/02/14, Papanicolaou Test Limitations: Cervical cytology is a screening test with limited sensitivity; regular screening is critical for cancer prevention; Pap tests are primarily effective for the diagnosis/preventi on of squamous cell carcinoma, not adenocarcinomas or other cancers. TESTING LAB LOCATION: [address] [phone] COLLECTION SITE: Client: [facility] Location: [facility] Cytologic material (specimen) 11/06/2018 10:29 AM GRIT REMOVAL OPERATOR 11/07/2018 9:47 AM GRIT REMOVAL OPERATOR Hina Mendoza APRN, CNP LAB - OPTIME CLINICAL SP ECIMEN Final Result Performing Organization Address City/[facility]/ZIP Co de Phone Number COPATH * Hepatitis C Screen Reflex to HCV RNA Quant and Genotype (08/08/2016 10:44 AM GRIT REMOVAL OPERATOR) Hepatitis C Antibody Nonreactive Assay performance characteristics have not been established for newborns, infants, and children NR [facility] Blood specimen (specimen) 08/08/2016 10:44 AM GRIT REMOVAL OPERATOR 08/08/2016 10:45 AM GRIT REMOVAL OPERATOR us Clemente Fung PA-C LAB - BLOOD ORDERABLES Final Result [facility] [address] [place] [address] * (ABNORMAL) LIPID REFLEX TO DIRECT LDL PANEL (07/14/2015 8:08 AM CDT) Cholesterol 200(H) <200 mg/dL [facility] Comment: LDL Cholesterol is the primary guide to therapy. The NCEP recommends further evaluation of: patients with cholesterol greater than 200 mg/dL if additional risk factors are present, cholesterol greater than 240 mg/dL, triglycerides greater than 150 mg/dL, or HDL less than 40 mg/dL. Triglycerides 100 0 - 150 mg/dL [facility] HDL Cholesterol 58 >50 mg/dL [facility] LDL Cholesterol Calculated 122 0 - 129 mg/dL [facility] Comment: LDL Cholesterol is the primary guide to therapy: LDL-cholesterol goal in high risk patients is <100 mg/dL and in very high risk patients is <70 mg/dL. VLDL-Cholesterol 20 0 - 30 mg/dL [facility] Cholesterol/HDL Ratio 3.4 0.0 - 5.0 [facility] Blood specimen (specimen) 07/14/2015 8:08 AM CDT 07/14/2015 8:09 AM CDT us Aracely Salhe APRN SALES ACCOUNT LEADER LAB - BLOOD ORDERABLES Final Result [facility] [address] [place] [address] * COLONOSCOPY (10/17/2010 10:52 AM GRIT REMOVAL OPERATOR) COLONOSCOPY Patient Name: Yasir Daly Procedure Date: 10/17/2010 10:52 AM Date of : 1960 Admit Type: Inpatient Age: 49 Gender: Female Attending MD: Ezra Mejia MD Procedure: Colonoscopy Indications: Screening for malignant neoplasm in the colon Providers: Ezra Mejia MD, Odalis Denis RN Referring MD: Medicines: Fentanyl 100 micrograms IV, Midazolam 2 mg IV Complications: No immediate complications Procedure: Pre-Anesthesia Assessment: - Prior to the procedure, a History and Physical was performed, and patient medications and allergies were reviewed. The patient is competent. The risks and benefits of the procedure and the sedation options and risks were discussed with the patient. All questions were answered and informed consent was obtained. Patient identification and proposed procedure were verified by the physician in the pre-procedure area. Mental Status Examination: alert and oriented. Airway Examination: normal oropharyngeal airway and neck mobility. Respiratory Examination: clear to auscultation. CV Examination: normal. ASA Grade Assessment: I - A normal, healthy patient. After reviewing the risks and benefits, the patient was deemed in satisfactory condition to undergo the procedure. The anesthesia plan was to use minimal sedation / analgesia (anxiolysis). Immediately prior to administration of medications, the patient was re-assessed for adequacy to receive sedatives. The heart rate, respiratory rate, oxygen saturations, blood pressure, adequacy of pulmonary ventilation, and response to care were monitored throughout the procedure. The physical status of the patient was re-assessed after the procedure. After obtaining informed consent, the colonoscope was passed under direct vision. Throughout the procedure, the patient's blood pressure, pulse, and oxygen saturations were monitored continuously. The Colonoscope was introduced through the anus and advanced to the cecum, identified by the appendiceal orifice, ileocecal valve and palpation. The colonoscopy was performed without difficulty. The patient tolerated the procedure well. The quality of the bowel preparation was good. Findings: The entire examined colon appeared normal. Impression: - The entire examined colon is normal. Recommendation: - Repeat colonoscopy in 10 years for screening purposes. Signed electronically by Ezra Mejia M.D. Ezra Mejia MD Signed Date: 10/17/2010 11:48 AM Number of Addenda: 0 Note initiated on 10/17/2010 10:52 AM RADIOLOGY RESULTS 10/17/2010 10:5 2 AM GRIT REMOVAL OPERATOR Ezra Mejia MD PROCEDURES Final Res ult RADIOLOGY RESULTS * DEXA,BONE DENSITY,AXIAL SKELETON (12/14/2006 9:56 AM CDT) Anatomical Region Laterality Modality Other 12/14/2006 9:56 AM CDT Impressions 12/17/2006 7:36 AM CDT Indication: Loss of height. Menopausal. Impression: 1. The T-score lumbar spine in region of L1-L4 is -1.1. This correlates with mild osteopenia. 2. The T-score the right femoral neck is -1.4. This correlates with mild osteopenia. 3. The T-score of the left femoral neck is -1.0. This correlates with borderline mild osteopenia. Hollis Bone MD SPECIAL IMAGING STUDIES Edited from Last 3 Months or Most Recently Relevant to Health Maintenance Insurance [facility] [employer] [employer] PRO[employer] [facility] EMPLOYEE PROGRAM [facility] EM[employer]EE PROGRAM [facility] PROGRESSIVE Care Teams Nurse Practitioner Adult Relationship Specialty Start [place] [id number] [address] [id number] [facility] - General 05/20/20
--- OUTSIDE RECORDS SUMMARY | 2025-03-30 17:49 | XMS_ITS | Clinical Summary ---
Author Organization [facility] Address [address] [place] [address] Care Team Providers Care Corporate Security Officer Name Role Phone Jeanne Mazariegos MD Primary Care Provider [phone] Allergies Active Allergy Reactions Criticality Noted Date Comments Animal Dander Other - Describe In Comment Field 12/15/2015 Patient states itchy, swollen eyes. Etodolac Itching 12/09/2015 Iodine Hives,Itching 01/03/2018 Mold Other - Describe In Comment Field 12/15/2015 Patient states SOB. Penicillins Hives 06/18/2013 Hydroxychloroquine Itching 01/03/2018 Pollen Extracts Other - Describe In Comment Field 12/15/2015 Patient states sneezing. Quinolines (8-Hydroxyquinoline) Other - Describe In Comment Field 06/10/2009 AMINOQUINOLINES ONLY-Mouth sores. NOT Quinolines Sulfa (Sulfonamide Antibiotics) Hives 06/18/2013 Medications ibuprofen (ADVIL; MOTRIN) 200 mg tablet Take by mouth. A ctive albuterol HFA (PRO-AIR; VENTOLIN; PROVENTIL) 90 mcg/actuation inhalerIndicatio ns:Shortness of breath,Mild persistent asthma, unspecified whether complicated (HC) INHALE 2 PUFFS BY MOUTH EVERY 6 HOURS IF NEEDED FOR SHORTNESS OF BREATH 1ST CHOICE OR WHEEZING 2ND CHOICE. 18 g 1 4 Active citalopram (CELEXA) 20 mg tabletIndication s:Major depressive disorder in full remission, unspecified whether recurrent Take 1 Tablet (20 mg) by mouth once daily. 30 Tablet 4 Active methotrexate (RHEUMATREX) 2.5 mg tabletIndication s:Seronegative rheumatoid arthritis (HC) Take 4 Tablets (10 mg) by mouth once weekly. TAKE 4 TABLETS BY MOUTH ONCE WEEKLY 48 Tablet 1 5 Active folic acid 1 mg tabletIndication s:Seronegative rheumatoid arthritis (HC) Take 3 Tablets (3 mg) by mouth once daily. 270 Tablet 3 5 Active fluticasone propionate 110 mcg/Actuation inhaler Inhale 2 Puffs by mouth two times daily. 5 Active Active Problems Problem Noted Date Diagnosed Date Screen for colon cancer 03/07/2022 Asthma, mild persistent 06/18/2013 Medication monitoring encounter 06/18/2013 Major depression in full remission 06/18/2013 Rheumatoid arthritis(714.0) Encounters Date Type Department Care Team Description 02/17/2025 10:40 AM CDT Office Visit [address] [address] Heath Crowley MD Musculoskeletal Problem (RA) 02/17/2025 Travel 02/12/2025 Travel from Last 3 Months Immunizations Immunization Administration Dates Next Due COVID-19 vaccine (Moderna 100mcg/0.5mL) MINE CHAN 10/11/2021,11/09/2020,10/12/2020 Influenza A (H1N1), Inactiva patrica (Age >=3 Years) 08/12/2009 Influenza RIV4 (Age 18+ Year s) PRESERV FREE 11/06/2018 Influenza, IIV3 (Age 6-35 mos) 06/10/2009 Influenza, IIV3 (Age >=3 years) 08/18/20 13,08/18/2011,08/15/2010,2006 Influenza, IIV4 09/02/2014 Td, Preservative Free (age > = 7 Years) 11/06/2018 Tdap, Unspecified 10/07/2007 Family History Medical History Relation Name Comments Heart Disease Father Hypertension Father Heart Disease Maternal Grandfather Cancer-breast Maternal Grandmother in 40' s Other Mother Scleroderma Other Paternal Grandmother RA Other Sister 2 Scleroderma, Misty pus Relation Name Status Comments Father (Age 79) CHF Maternal Grandfather Maternal Grandmother Mother (Age 62) Scleroderm a Paternal Grandmother Sister 1 Alive Sister 2 Social History Tobacco Use Types Packs/Day Years Used Date Smoking Tobacco: Never Smokeless Tobacco: Never Alcohol Use Standard Drinks/Week Comments Yes 0 (1 standard drink = 0.6 oz pur e alcohol) very rare PHQ-2 Answer Date Recorded PHQ-2 TOTAL SCORE 0 07/20/2023 Financial Resource Strain Answer Date R ecorded Difficulty of Paying Living Expenses Not on file 10/01/2021 Difficulty of Paying Living Expenses Not on file 10/01/2021 Comments No Sex and Gender Information Value Date Recorded Sex Assigned at Not on file 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 Gender Identity Not on file Sexual Orientation Not on file 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 file Not on file Not on file Obstetrics History Last Filed Vital Signs Vital Sign Reading Time Taken Comments Blood Pressure 126/80 02/17/2025 11:11 AM CDT Pulse 66 02/17/2025 11:11 AM CDT Temperature 36.6 C (97.9 F) 05/22/2023 11:24 AM CDT Respiratory Rate 17 02/17/2025 11:11 AM CDT Oxygen Saturation 100% 05/22/2023 11:24 AM CDT Inhaled Oxygen Concentration - - Weight 64 kg (141 lb) 02/17/2025 11:11 AM CDT Height 170.8 cm (5' 7.25) 07/20/2023 9:22 AM CD T Body Mass Index 21.92 07/20/2023 9:22 AM CDT Plan of Treatment Upcoming Encounters Date Type Department Care Team (Late st Contact Info) Description 02/16/2026 10:20 AM CDT Office Visit [facility] [address] [place] [address] Heath Crowley MD [address] [place] [address] Health Maintenance Due Date Last Done Comments Zoster (shingles) series for age 50+ (1 of 2) 1977 Pneumococcal series for age 50+ (1 of 1 - PCV) 2008 Lipids for age 45-75 06/23/2018 06/23/2013 RSV vaccine for adults or (1 - Risk 60-74 years 1-dose series) 2018 Mammogram for age 45-75 08/09/2023 08/09/20 (Verified in Care Everywhere or Patient Record), 08/01/2021, 06/02/2020 (Completed outside of [facility]), Additional history exists DEXA/DXA scan for age 65+ 12/06/2023 Medicare Wellness for age 65+ 12/06/2023 COVID-19 vaccine series ( season) 2024 10/11/2021, 11/09/2020, 10/12/2020 BMI (ht and wt on same day) for age 18+ 07/20/2024 07/20/2023, 05/22/2023, 01/22/2023, Additional history exists Depression screening for age 12+ 07/20/2024 07/20/2023, 05/22/2023, 05/29/2022, Additional history exists Influenza Vaccine (Season Ended) 2025 11/06/2018, 09/02/2014, 08/18/2013, Additional history exists Tetanus booster 11/06/2028 11/06/2018, 10/07/2007 Colonoscopy through age 75 03/08/2029 03/08/2022 Tdap Completed 10/07/2007 Hepatitis C screening for age 18-79 Completed 01/03/2018, 06/13/2016 Hepatitis B series for 19+ Aged Out N o longer eligible based on patient's age to complete this topic Procedures Procedure Name Priority Date/Time Associated Diagnosis Comments SCAN-MAMMOGRAPHY REPORT 08/01/2021 12:00 AM CDT ANTI HCV Routine 01/03/2018 10:47 AM CDT Needlestick injury of finger, initial encounter Work related injury LIPID PANEL W REFLEX MEASURED LDL Routine 06/23/2013 9:47 AM CDT Screening, lipid from Last 3 Months or Most Recently Relevant to Health Maintenance Results * SCAN-MAMMOGRAPHY REPORT (08/01/2021 12:00 AM CDT) Anatomical Region Laterality Modality Other us Scanner OTHER Final Result * ANTI HCV (01/03/2018 10:47 AM CDT) Pathologist [facility] HEPATITIS C ANTIBODY Non-Reacti ve Non-React nino 01/04/2018 9:15 AM CDT [facility] Comment:Antibodies to HCV no t detected; does not exclude the possibility of exposure to HCV. Blood BLOOD SPECIMEN / Unknown Venipuncture / Unknown 01/03/2018 10:47 AM CDT 01/03/2018 10:55 AM CDT us Leonora Chávez MD SEND OUTS Rica l Result [facility] [address] [place] [address], [place] [phone] * (ABNORMAL) LIPID PANEL W REFLEX MEASURED LDL (06/23/2013 9:47 AM CDT) [facility] CHOLESTEROL,TOTAL 234(H) 100 - 199 mg/dL 06/23/2013 11:16 AM T [facility] TRIGLYCERIDES 91 <150 mg/dL 06/23/2013 11:16 AM T [facility] HDL CHOLESTEROL 57 >40 mg/dL 3 11:16 AM [facility] NON-HDL CHOLESTEROL 177(H) <145 mg/dl 06/23/2013 11:16 AM [facility] CHOL/HDL RATIO 4.11 <4.50 06/23/2013 11:16 AM T [facility] LDL CHOLESTEROL 159(H) <=130 mg/dL 06/23/2013 11:16 AM T [facility] PATIENT STATUS NOT GIVEN 06/23/2013 11:16 AM T [facility] Blood specimen (specimen) BLOOD SPECIMEN / Unknown Venipuncture / Unknown 06/23/2013 9:47 AM CDT 06/23/2013 9:47 AM CDT us Ronald Souza MD CHEMISTRY Final Resu lt [facility] [address] [place] [address] from Last 3 Months or Most Recently Relevant to Health Maintenance Insurance [facility] Advance Directives * Full Code (Latest Code Status on File) Date Activated Date Inactivated Comments 03/08/2022 3:00 PM 03/08/2022 5:47 PM Question Answer Comments Code Status Discussion: Other (specify in commen ts): procedure * Full Code Date Activated Date Inactivated Comments 03/08/2022 11:49 AM 03/08/2022 3:00 PM Question Answer Comments Code Status Discussion: Unable to Assess Preferences, Provider to review later Care Teams Corporate Security Officer Relationship Specialty Start [place] [address] [address] [address] PCP - General Family Practice 08/15/19
--- OUTSIDE RECORDS SUMMARY | 2025-03-30 17:49 | XMS_ITS | Encounter Summary ---
Author Organization [facility] Address [address] [place] [address] Care Team Providers Care Steel Wool Machine Operator Name Role Phone Bonnie Nance MD Primary Care Provider + [phone] Heidi Lugo DNP Primary Care Provider Aracely Saleh APRN FELTING MACHINE OPERATOR HELPER Primary Care Provider Clemente FungC Primary Care Provider Sheron steel No Ref-Primary, Physician Primary Care Provider James Llamas MD Unavailable + [phone] Hina Mendoza APRN FELTING MACHINE OPERATOR HELPER Unavailable [phone] Hina Mendoza APRN FELTING MACHINE OPERATOR HELPER Unavailable [phone] James Llamas MD Unavailable + [phone] Alyse White APRN FELTING MACHINE OPERATOR HELPER Unavailable [phone] Jeanne Mazariegos MD Primary Care Provider + [phone] Hina Mendoza APRN FELTING MACHINE OPERATOR HELPER Unavailable [phone] Alyse White APRN FELTING MACHINE OPERATOR HELPER Unavailable [phone] Hina Mendoza APRN FELTING MACHINE OPERATOR HELPER Unavailable [phone] Alyse White APRN FELTING MACHINE OPERATOR HELPER Unavailable [phone] Alyse White APRN FELTING MACHINE OPERATOR HELPER Unavailable [phone] Encounter Details Date Type Department Care Team (Late st Contact Info) Description 2010 [facility] Medical Advice Initial Department Stas Sanz Social History Tobacco Use Types Packs/Day Years Used Date Smoking Tobacco: Never Alcohol Use Standard Drinks/Week Comments Yes 0 (1 standard drink = 0.6 oz pur e alcohol) wine hardly ever once a year Comments No Sex and Gender Information Value Date Recorded Sex Assigned at Not on file 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 Gender Identity Not on file Sexual Orientation Not on file 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 file Not on file documented as of this encounter Plan of Treatment Not on file documented as of this encounter Visit Diagnoses Not on filedocumented in this encounter Care Teams Steel Wool Machine Operator Relationship Specialty [place] [address] [place] [address] PCP - General 06/24/04 05/20/12 Heidi Lugo DNP [address] [place] [address] PCP - General Family Practice 05/21/12 12/01/14 Aracely Saleh APRN CNP [address] [place] [address] PCP - General Nurse Practitioner - Adult Health 12/02/14 08/03/16 Clemente Fung PA-C [address] [place] [address] PCP - General Physician Chief General Pediatric Clinic 08/04/16 10/01/17 No Ref-Primary, Physician PCP - General 05/22/18 05/19/20 James Llamas MD [address] [place] [address] PCP - Assigned PCP 06/16/18 11/09/18 Hina Mendoza APRN FELTING MACHINE OPERATOR HELPER [address] [place] [address], [place] [address] PCP - Assigned PCP 11/10/18 12/03/18 [place] [address] [place] [address] PCP - General 05/20/20 Hina Mendoza APRN FELTING MACHINE OPERATOR HELPER [address] [place] [address], [place] [address] Assigned PCP 11/10/18 02/21/20 James Llamas MD [address] [place] [address] Assigned PCP 06/16/18 11/09/18 Alyse White APRN FELTING MACHINE OPERATOR HELPER [address] [place] [address], [place] [address] Assigned PCP 02/22/20 02/23/21 Hina Mendoza APRN FELTING MACHINE OPERATOR HELPER [address] [place] [address], [place] [address] Assigned PCP 02/24/21 09/24/21 Alyse White APRN FELTING MACHINE OPERATOR HELPER [address] [place] [address], [place] [address] Assigned PCP 09/25/21 10/08/21 Hina Mendoza APRN FELTING MACHINE OPERATOR HELPER [address] [place] [address], [place] [address] Assigned PCP 10/09/21 11/12/21 Alyse White APRN FELTING MACHINE OPERATOR HELPER [address] [place] [address] Assigned PCP 11/13/21 09/15/22 Alyse White APRN FELTING MACHINE OPERATOR HELPER [address] [place] [address] Assigned PCP 11/25/22 02/16/23 documented as of this encounter
--- OUTSIDE RECORDS SUMMARY | 2025-03-31 02:23 | XMS_ITS | Encounter Summary ---
Author Organization [facility] Address [address] [place] [address] Care Team Providers Care Pre Owned Sales Manager Name Role Phone Bonnie Nance MD Primary Care Provider + [phone] Heidi Lugo DNP Primary Care Provider Aracely Saleh APRN SENIOR LEAD DEVELOPER Primary Care Provider Clemente FungC Primary Care Provider Sheron steel No Ref-Primary, Physician Primary Care Provider James Llamas MD Unavailable + [phone] Hina Mendoza APRN SENIOR LEAD DEVELOPER Unavailable [phone] Hina Mendoza APRN SENIOR LEAD DEVELOPER Unavailable [phone] James Llamas MD Unavailable + [phone] Alyse White APRN SENIOR LEAD DEVELOPER Unavailable [phone] Jeanne Mazariegos MD Primary Care Provider + [phone] Hina Mendoza APRN SENIOR LEAD DEVELOPER Unavailable [phone] Alyse White APRN SENIOR LEAD DEVELOPER Unavailable [phone] Hina Mendoza APRN SENIOR LEAD DEVELOPER Unavailable [phone] Alyse White APRN SENIOR LEAD DEVELOPER Unavailable [phone] Alyse White APRN SENIOR LEAD DEVELOPER Unavailable [phone] Encounter Details Date Type Department Care Team [...] on file 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 Gender Identity Not on file Sexual Orientation Not on file 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 file Not on file documented as of this encounter Plan of Treatment Not on file documented as of this encounter Visit Diagnoses Not on filedocumented in this encounter Care Teams Pre Owned Sales Manager Relationship Specialty [place] [address] [place] [address] PCP - General 06/24/04 05/20/12 Heidi Lugo DNP [address] [place] [address] PCP - General Family Practice 05/21/12 12/01/14 Aracely Saleh APRN CNP [address] [place] [address] PCP - General Nurse Practitioner - Adult Health 12/02/14 08/03/16 Clemente Fung PA-C [address] [place] [address] PCP - General Physician Charge Machine Operator 08/04/16 10/01/17 No Ref-Primary, Physician PCP - General 05/22/18 05/19/20 James Llamas MD [address] [place] [address] PCP - Assigned PCP 06/16/18 11/09/18 Hina Mendoza APRN SENIOR LEAD DEVELOPER [address] [place] [address], [place] [address] PCP - Assigned PCP 11/10/18 12/03/18 [place] [address] [place] [address] PCP - General 05/20/20 Hina Mendoza APRN SENIOR LEAD DEVELOPER [address] [place] [address], [place] [address] Assigned PCP 11/10/18 02/21/20 James Llamas MD [address] [place] [address] Assigned PCP 06/16/18 11/09/18 Alyse White APRN SENIOR LEAD DEVELOPER [address] [place] [address], [place] [address] Assigned PCP 02/22/20 02/23/21 Hina Mendoza APRN SENIOR LEAD DEVELOPER [address] [place] [address], [place] [address] Assigned PCP 02/24/21 09/24/21 Alyse White APRN SENIOR LEAD DEVELOPER [address] [place] [address], [place] [address] Assigned PCP 09/25/21 10/08/21 Hina Mendoza APRN SENIOR LEAD DEVELOPER [address] [place] [address], [place] [address] Assigned PCP 10/09/21 11/12/21 Alyse White APRN SENIOR LEAD DEVELOPER [address] [place] [address] Assigned PCP 11/13/21 09/15/22 Alyse White APRN SENIOR LEAD DEVELOPER [address] [place] [address] Assigned PCP 11/25/22 02/16/23 documented as of this encounter
--- OUTSIDE RECORDS SUMMARY | 2025-03-31 02:23 | XMS_ITS | Clinical Summary ---
Author Organization [facility] Address [address] [place] [address] Care Team Providers Care Director Foundation Name Role Phone Unavailable Primary Care Provider Unavailabl e Source Comments Patient records contain information from all sites at [facility]. For routine questions regarding patient records, call [phone] during business hours, M-F 8:00 AM - 5:00 PM Central Time. Record requests for emergency care only can be directed to [phone] at any time.[facility] Allergies Active Allergy Reactions Criticality Noted Date [...] drink = 0.6 oz pur e alcohol) [facility] Utilities Answer Date Recorded In the past 12 months has e [employer], gas, oil, or water [employer] threatened to shut off services in your [...] your living situation today? 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 at [facility] Hardware e.g. pins/screws/ rods [employer] 901 / NA / NA Spn Scrw Cnt St 2.6x7 - [id number] Implanted:Qty: 6 on 07/24/2023 by Janis Mcmahan M.D. at [facility] Hardware e.g. pins/screws/ rods Med[employer]onic 853-467 / / Spn Scrw Cnt St 2.6x5 - [id number] Implanted:Qty: 6 on 07/24/2023 by Janis Mcmahan M.D. at [facility] Hardware e.g. pins/screws/ rods [employer] 853-465 / / Spn Plt Cnt Od 12 - [id number] Implanted:Qty: 3 on 07/24/2023 by Jnais Mcmahan M.D. at [facility] Hardware e.g. pins/screws/ rods [employer] 853-012 / [...] M.D. LAB BLOOD ADD-ON Final Re sult [facility] [address] [place] [address], [place] DTL [facility] [address] [place] [address] from Last 3 Months or Most Recently Relevant to Health Maintenance Additional Health Concerns Infection Onset Date Last Indicated Protective Environment 01/08/2023 Insurance [facility] [employer] Advance Directives For more information, please contact: [phone] * Full Code (Latest Code Status on File) Date Activated Date Inactivated Comments 07/24/2023 3:03 PM 07/25/2023 5:29 PM Question Answer Comments Full Code: Discussed
--- OUTSIDE RECORDS SUMMARY | 2025-03-31 02:23 | XMS_ITS | Encounter Summary ---
Author Organization [facility] Address [address] [place] [address] Care Team Providers Care Clothing Patternmaker Name Role Phone No Ref-Primary, Physician Primary Care Provider James Llamas MD Unavailable [phone] Hina Mendoza APRN TAX COLLECTION COORDINATOR Unavailable Hina Mendoza APRN TAX COLLECTION COORDINATOR Unavailable James Llamas MD Unavailable [phone] Alyse White APRN TAX COLLECTION COORDINATOR Unavailable Jeanne Mazariegos MD Primary Care Provider [phone] Hina Mendoza APRN TAX COLLECTION COORDINATOR Unavailable Alyse Whiet APRN TAX COLLECTION COORDINATOR Unavailable [phone] Hina Mendoaz APRN TAX COLLECTION COORDINATOR Unavailable Alyse White APRN TAX COLLECTION COORDINATOR Unavailable [phone] Alyse White APRN TAX COLLECTION COORDINATOR Unavailable Encounter Details Date Type Department Care Team (Late st Contact Info) Description 06/12/2018 [facility] [address] [place] [phone] James Llamas MD [address] [place], [place] [id number] Social History Tobacco Use Types Packs/Day Years Used Date Smoking Tobacco: Never Smokeless Tobacco: Never Alcohol Use Standard Drinks/Week Comments Yes 0 (1 standard drink = 0.6 oz pur e alcohol) wine hardly ever once a year Comments No Sex and Gender Information Value Date Recorded Sex Assigned at Not on file 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 Gender Identity Not on file Sexual Orientation [...] documented as of this encounter Care Teams Clothing Patternmaker Relationship Specialty Start Date End Date No Ref-Primary, Physician PCP - General 05/22/18 05/19/20 James Llamas MD [address] [place] [address] PCP - Assigned PCP 06/16/18 11/09/18 Hina Mendoza APRN TAX COLLECTION COORDINATOR [address] [place] [address] PCP - Assigned PCP 11/10/18 12/03/18 [place] [address] [place] [address] PCP - General 05/20/20 Hina Mendoza APRN TAX COLLECTION COORDINATOR [address] [place] [address] Assigned PCP 11/10/18 02/21/20 James Llamas MD [address] [place] [address] Assigned PCP 06/16/18 11/09/18 Alyse White APRN TAX COLLECTION COORDINATOR [address] [place] [address], [place] [address] Assigned PCP 02/22/20 02/23/21 Hina Mendoza APRN TAX COLLECTION COORDINATOR [address] [place] [address], [place] [address] Assigned PCP 02/24/21 09/24/21 Alyse White APRN TAX COLLECTION COORDINATOR [address] [place] [address], [place] [address] Assigned PCP 09/25/21 10/08/21 Hina Mendoza APRN TAX COLLECTION COORDINATOR [address] [place] [address], [place] [address] Assigned PCP 10/09/21 11/12/21 Alyse White APRN TAX COLLECTION COORDINATOR [address] [place] [address], [place] [address] Assigned PCP 11/13/21 09/15/22 Alyse White APRN TAX COLLECTION COORDINATOR [address] [place] [address], [place] [address] Assigned PCP 11/25/22 02/16/23 documented as of this encounter
--- OUTSIDE RECORDS SUMMARY | 2025-03-31 02:23 | XMS_ITS | Encounter Summary ---
Author Organization [facility] Address [address] [place] [address] Care Team Providers Care Awning Installer Name Role Phone Bonnie Nance MD Primary Care Provider + [phone] Heidi Lugo DNP Primary Care Provider Aracely Saleh APRN EVAPORATIVE COOLER INSTALLER Primary Care Provider Clemente FungC Primary Care Provider Sheron steel No Ref-Primary, Physician Primary Care Provider James Llamas MD Unavailable + [phone] Hina Mendoza APRN EVAPORATIVE COOLER INSTALLER Unavailable +[phone] Hina Mendoza APRN EVAPORATIVE COOLER INSTALLER Unavailable [phone] James Llamas MD Unavailable + [phone] Alyse White APRN EVAPORATIVE COOLER INSTALLER Unavailable [phone] Jeanne Mazariegos MD Primary Care Provider + [phone] Hina Mendoza APRN EVAPORATIVE COOLER INSTALLER Unavailable [phone] Alyse White APRN EVAPORATIVE COOLER INSTALLER Unavailable [phone] Hina Mendoza APRN EVAPORATIVE COOLER INSTALLER Unavailable [phone] Alyse White APRN EVAPORATIVE COOLER INSTALLER Unavailable [phone] Alyse White APRN EVAPORATIVE COOLER INSTALLER Unavailable [phone] Encounter Details Date Type Department Care Team (Late st Contact Info) Description 12/30/2004 Abstract [facility] AGRICULTURAL CHEMICALS INSPECTOR Clinic Areli Kimball, NILESH [place] [address] Social History Tobacco Use Types Packs/Day Years Used Date Smoking Tobacco: Never Alcohol Use Standard Drinks/Week Comments Yes 0 (1 standard drink = 0.6 oz pur e alcohol) rare Comments No Sex and Gender Information Value Date Recorded Sex Assigned at Not on file Legal Sex Female 4:20 AM CHIMNEY BUILDER Gender Identity Not on file Sexual Orientation Not on file 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 file Not on file documented as of this encounter Plan of Treatment Not on file documented as of this encounter Visit Diagnoses Not on filedocumented in this encounter Care Teams Awning Installer Relationship Specialty Start Date End Date Bonnie Nance MD [address] [place] [address] PCP - General 06/24/04 05/20/12 Heidi Lugo DNP [address] [place] [address] PCP - General Family Practice 05/21/12 12/01/14 Aracely Saleh APRN CNP [address] [place] [address] PCP - General Nurse Practitioner - Adult Health 12/02/14 08/03/16 Clemente Fung PA-C [address] [place] [address] PCP - General Physician Sheeter Waxer Operator 08/04/16 10/01/17 No Ref-Primary, Physician PCP - General 05/22/18 05/19/20 [place] [address] [place] [address] PCP - Assigned PCP 06/16/18 11/09/18 Hina Mendoza APRN EVAPORATIVE COOLER INSTALLER [address] [place] [address] PCP - Assigned PCP 11/10/18 12/03/18 [place] [address] [place] [address] PCP - General 05/20/20 Hina Mendoza APRN EVAPORATIVE COOLER INSTALLER [address] [place] [address] Assigned PCP 11/10/18 02/21/20 James Llamas MD [facility] [place] [address] Assigned PCP 06/16/18 11/09/18 Alyse White APRN EVAPORATIVE COOLER INSTALLER [address] [place] [address] Assigned PCP 02/22/20 02/23/21 Hina Mendoza APRN EVAPORATIVE COOLER INSTALLER [address] [place] [address], [place] [address] Assigned PCP 02/24/21 09/24/21 Alyse White APRN EVAPORATIVE COOLER INSTALLER [address] [place] [address] Assigned PCP 09/25/21 10/08/21 Hina Mendoza APRN EVAPORATIVE COOLER INSTALLER [address] [place] [address] Assigned PCP 10/09/21 11/12/21 Alyse White APRN EVAPORATIVE COOLER INSTALLER [address] [place] [address] Assigned PCP 11/13/21 09/15/22 Alyse White APRN EVAPORATIVE COOLER INSTALLER [address] [place] [address] Assigned PCP 11/25/22 02/16/23 documented as of this encounter
--- OUTSIDE RECORDS SUMMARY | 2025-03-31 02:23 | XMS_ITS | Encounter Summary ---
Author Organization [facility] Address [address] [place] [address] Care Team Providers Care Lean Specialist Name Role Phone Bonnie Nance MD Primary Care Provider + [phone] Heidi Lugo DNP Primary Care Provider Aracely Saleh APRN COMPUTING SYSTEMS MECHANIC Primary Care Provider Clemente FungC Primary Care Provider Sheron steel No Ref-Primary, Physician Primary Care Provider James Llamas MD Unavailable + [phone] Hina Mendoza APRN COMPUTING SYSTEMS MECHANIC Unavailable +[phone] Hina Mendoza APRN COMPUTING SYSTEMS MECHANIC Unavailable +[phone] James Llamas MD Unavailable + [phone] Alyse White APRN COMPUTING SYSTEMS MECHANIC Unavailable [phone] Jeanne Mazariegos MD Primary Care Provider + [phone] Hina Mendoza APRN COMPUTING SYSTEMS MECHANIC Unavailable [phone] Alyse White APRN COMPUTING SYSTEMS MECHANIC Unavailable [phone] Hina Mendoza APRN COMPUTING SYSTEMS MECHANIC Unavailable [phone] Alyse White APRN COMPUTING SYSTEMS MECHANIC Unavailable [phone] Alyse White APRN COMPUTING SYSTEMS MECHANIC Unavailable [phone] Encounter Details Date Type Department Care Team (Late st Contact Info) Description 12/16/2004 Abstract [facility] OPERATING SYSTEMS SPECIALIST Clinic Yen Roman MD Social History Tobacco Use Types Packs/Day Years Used Date Smoking Tobacco: Never Assessed Comments Unknown Sex and Gender Information Value Date Recorded Sex Assigned at Not on file Legal Sex Female 4:20 AM INDUSTRIAL CHEMICALS SUPERVISOR Gender Identity Not on file Sexual Orientation Not on file documented as of this encounter Plan of Treatment Not on file documented as of this encounter Visit Diagnoses Not on filedocumented in this encounter Care Teams Lean Specialist Relationship Specialty Start Date End Date Bonnie Nance MD [address] [place] [address] PCP - General 06/24/04 05/20/12 Heidi Lugo DNP [address] [place] [address] PCP - General Family Practice 05/21/12 12/01/14 Aracely Saleh APRN COMPUTING SYSTEMS MECHANIC [address] [place] [address] PCP - General Nurse Practitioner - Adult Health 12/02/14 08/03/16 Clemente Fung PA-C [address] [place] [address] PCP - General Physician Mfts 08/04/16 10/01/17 No Ref-Primary, Physician PCP - General 05/22/18 05/19/20 James Llamas MD [address] [place] [address] PCP - Assigned PCP 06/16/18 11/09/18 Hina Mendoza APRN COMPUTING SYSTEMS MECHANIC [address] [place] [address] PCP - Assigned PCP 11/10/18 12/03/18 [place] [address] [address] [place] [address] PCP - General 05/20/20 Hina Mendoza APRN COMPUTING SYSTEMS MECHANIC [address] [place] [address], [place] [address] Assigned PCP 11/10/18 02/21/20 James Llamas MD [address] [place] [address] Assigned PCP 06/16/18 11/09/18 Alyse White APRN COMPUTING SYSTEMS MECHANIC [address] [place] [address], [place] [address] Assigned PCP 02/22/20 02/23/21 Hina Mendoza APRN COMPUTING SYSTEMS MECHANIC [address] [place] [address], [place] [address] Assigned PCP 02/24/21 09/24/21 Alyse White APRN COMPUTING SYSTEMS MECHANIC [address] [place] [address], [place] [address] Assigned PCP 09/25/21 10/08/21 Hina Mendoza APRN COMPUTING SYSTEMS MECHANIC [address] [place] [address], [place] [address] Assigned PCP 10/09/21 11/12/21 Alyse White APRN COMPUTING SYSTEMS MECHANIC [address] [place] [address], [place] [address] Assigned PCP 11/13/21 09/15/22 Alyse White APRN [facility] [address] [place] [address] Assigned PCP 11/25/22 02/16/23 documented as of this encounter
--- OUTSIDE RECORDS SUMMARY | 2025-03-31 02:23 | XMS_ITS | Clinical Summary ---
Author Organization [facility] Address [address] [place] [address] Care Team Providers Care Motor Tune Up Specialist Name Role Phone Jeanne Mazariegos MD Primary Care Provider [phone] Allergies Active Allergy Reactions Criticality Noted Date [...] Description 02/17/2025 10:40 AM CDT Office Visit [address] [address] Heath Crowley MD Musculoskeletal Problem (RA) 02/17/2025 [...] on file Legal Sex Female 6:20 AM DIRECTOR MBA Gender Identity Not on file Sexual Orientation [...] Description 02/16/2026 10:20 AM CDT Office Visit [facility] [address] [place] [address] Heath Crowley MD [address] [place] [address] Health Maintenance Due Date Last Done Comments [...] Patient Record), 08/01/2021, 06/02/2020 (Completed outside of [facility]), Additional history exists DEXA/DXA scan for age [...] ANTI HCV (01/03/2018 10:47 AM CDT) Pathologist [facility] HEPATITIS C ANTIBODY Non-Reacti ve Non-React nino 01/04/2018 9:15 AM CDT [facility] Comment:Antibodies to HCV no t detected; does not exclude the possibility of exposure to HCV. Blood BLOOD SPECIMEN / Unknown Venipuncture / Unknown 01/03/2018 10:47 AM CDT 01/03/2018 10:55 AM CDT us Leonora Chávez MD SEND OUTS Rica l Result [facility] [address] [place] [address], [place] [phone] * (ABNORMAL) LIPID PANEL W REFLEX MEASURED LDL (06/23/2013 9:47 AM CDT) [facility] CHOLESTEROL,TOTAL 234(H) 100 - 199 mg/dL 06/23/2013 11:16 AM T [facility] TRIGLYCERIDES 91 <150 mg/dL 06/23/2013 11:16 AM T [facility] HDL CHOLESTEROL 57 >40 mg/dL 3 11:16 AM [facility] NON-HDL CHOLESTEROL 177(H) <145 mg/dl 06/23/2013 11:16 AM [facility] CHOL/HDL RATIO 4.11 <4.50 06/23/2013 11:16 AM T [facility] LDL CHOLESTEROL 159(H) <=130 mg/dL 06/23/2013 11:16 AM T [facility] PATIENT STATUS NOT GIVEN 06/23/2013 11:16 AM T [facility] Blood specimen (specimen) BLOOD SPECIMEN / Unknown Venipuncture / Unknown 06/23/2013 9:47 AM CDT 06/23/2013 9:47 AM CDT us Ronald Souza MD CHEMISTRY Final Resu lt [facility] [address] [place] [address] from Last 3 Months or Most Recently Relevant to Health Maintenance Insurance [facility] Advance Directives * Full Code (Latest Code Status on File) Date Activated Date Inactivated Comments 03/08/2022 3:00 PM 03/08/2022 5:47 PM Question Answer Comments Code Status Discussion: Other (specify in commen ts): procedure * Full Code Date Activated Date Inactivated Comments 03/08/2022 11:49 AM 03/08/2022 3:00 PM Question Answer Comments Code Status Discussion: Unable to Assess Preferences, Provider to review later Care Teams Motor Tune Up Specialist Relationship Specialty Start [place] [address] [place] [address] PCP - General Family Practice 08/15/19
--- OUTSIDE RECORDS SUMMARY | 2025-03-31 02:23 | XMS_ITS | Encounter Summary ---
Author Organization [facility] Address [address] [place] [address] Care Team Providers Care Marine Fitter Name Role Phone Unavailable Primary Care Provider [...] AM CDT Legal Sex Female 7:11 AM DIRECTOR OF EMPLOYEE DEVELOPMENT Gender Identity Female 04/24/2023 8:39 AM CDT [...] #2 presbyopia CD Reports - EYEGEN Id: [id number] Status: Fnl documented in this encounter Plan of Treatment Not on file documented as of this encounter Visit Diagnoses Not on filedocumented in this encounter Additional Health Concerns Infection Onset Date Last Indicated Resolved Time Protective Environment 01/08/2023 01/08/2023 documented as of this encounter
--- OUTSIDE RECORDS SUMMARY | 2025-03-31 02:23 | XMS_ITS | Clinical Summary ---
Author Organization [facility] Address [address] [place] [address] Care Team Providers Care Fish Cutter Name Role Phone Jeanne Mazariegos MD Primary Care Provider [phone] Allergies Active Allergy Reactions Criticality Noted Date [...] arthritis) 04/02/2009 Overview (03/25/2010): Diagnosed 2007 Methotrexate- Pony Worker. Dr. Dick Cuello [place] Vitiligo 08/28/2008 Varicose veins 03/05/2008 Overview (03/25/2010): Lazer therapy Vein Stripping Raynaud's syndrome 04/19/2007 Mild persistent asthma 12/15/2005 Overview (03/25/2010): well controlled on FLovent 12/15/2005 AAP done Asthma since age 29. Allergic rhinitis due to other allergen 12/16/19 06 Overview (03/25/2010): Spring and fall Resolved Problems Problem Noted Date Diagnosed Date Resolved Date [facility] 01/17/2011 03/17/2024 Overview (01/06/2013): High priority patient - 01/17/11 DX V65.8 REPLACED WITH [id number] (01/06/2013) Arthropathy 11/04/2007 04/02/2009 Overview (07/02/2015): Rheum, rheumatoid arthritis likely, with elevated RF Problem list name updated by automated process. Provider to review Immunizations Immunization Administration Dates Next Due Influenza (IIV3) PF 07/15/2011, 9,11/01/2006,2003 Influenza Vaccine 18-64 (Flublok) 11/06/2018 Influenza Vaccine >6 months,quad, PF 09/02/2014 TD,PF 7+ (Tenivac) 11/06/2018 TDAP Vaccine (Adacel) 10/07/2007 Family History Medical History Relation Comments Arthritis Father C.A.D. Father [place] at age 53 Depression Father Hypertension Father [...] on file Legal Sex Female 4:20 AM STATION MASTER Gender Identity Not on file Sexual Orientation [...] BILATERAL W/ SOREN Routine 08/09/2022 1:52 PM STATION MASTER Visit for screening mammogram BASIC METABOLIC PANEL STAT 07/23/2019 2:07 AM CDT PAP IMAGED THIN LAYER SCREEN Routine 11/06/2018 10:29 AM STATION MASTER Encounter for gynecological examination without abnormal finding HEPATITIS C SCREEN REFLEX TO HCV RNA QUANT AND GENOTYPE Routine 08/08/2016 10:44 AM STATION MASTER Need for hepatitis C screening test ASTHMA ACTION PLAN Routine 08/08/2016 10 :22 AM STATION MASTER LIPID REFLEX TO DIRECT LDL PANEL Routine 07/14/2015 8:08 AM CDT Routine general medical examination at a [facility] care facility COLONOSCOPY Routine 10/17/2010 10:52 AM STATION MASTER HC DEXA BONE DENSITY, >=1 SITE, AXIAL SKELETON Routine 12/14/2006 9:56 AM CDT from Last 3 Months or Most Recently Relevant to Health Maintenance Results * MA Screen Bilateral w/Soren (08/09/2022 1:52 PM STATION MASTER) Anatomical Region Laterality Modality Breast Bilateral Mammography Impressions 08/09/2022 4:02 PM STATION MASTER IMPRESSION: ACR BI-RADS Category 1: Negative RECOMMENDED FOLLOW-UP: Annual routine screening mammogram The results and recommendations of this examination will be communicated to the patient. Jack Álvarez MD Narrative 08/09/2022 4:02 PM STATION MASTER BILATERAL FULL FIELD DIGITAL SCREENING MAMMOGRAM WITH [...] - 144 mmol/L 07/23/2019 2:23 AM CDT [facility] Potassium 4.0 3.4 - 5.3 mmol/L 07/23/2019 2:23 AM CDT [facility] Chloride 106 94 - 109 mmol/L 07/23/2019 2:23 AM CDT [facility] Carbon Dioxide 28 20 - 32 mmol/L 07/23/2019 2:28 AM CDT [facility] Anion Gap 3 3 - 14 mmol/L 07/23/2019 2:28 AM CDT [facility] Glucose 95 70 - 99 mg/dL 07/23/2019 2:28 AM CDT [facility] Urea Nitrogen 22 7 - 30 mg/dL 07/23/2019 2:28 AM CDT [facility] Creatinine 0.91 0.52 - 1.04 mg/dL 07/23/2019 2:28 AM CDT [facility] GFR Estimate 68 >60 mL/min/{1. 73_m2} 07/23/2019 2:28 AM CDT [facility] Comment: Non GFR Calc Starting 09/17/2018, serum creatinine based estimated GFR (eGFR) will be calculated using the Chronic Kidney Disease Epidemiology Collaboration (CKD-EPI) equation. GFR Estimate If Black 79 >60 mL/min/{1. 73_m2} 07/23/2019 2:28 AM CDT [facility] Comment: GFR Calc Starting 09/17/2018, serum creatinine based estimated GFR (eGFR) will be calculated using the Chronic Kidney Disease Epidemiology Collaboration (CKD-EPI) equation. Calcium 8.9 8.5 - 10.1 mg/dL 07/23/2019 2:28 AM CDT [facility] Blood specimen (specimen) 07/23/2019 2:07 AM CDT 07/23/2019 2:10 AM CDT us Long Ibarra MD LAB - BLOOD ORDERABLES Fin al Result [facility] [address] [place] [address] * Pap imaged thin layer screen with HPV - recommended age 30 - 65 (11/06/2018 10:29 AM STATION MASTER) PAP ADAIR Clayton Report Patient Name: YASIR KAUFFMAN MR#: [id number] Specimen #: [id number] Collected: 11/06/2018 Received: 11/07/2018 Reported: 11/11/2018 09:05 [...] BALBIR Huston (ASCP) Processed and screened at [facility] CLINICAL HISTORY: LMP: 12/13/04 A previous normal pap Date of Last Pap: 12/02/14, Papanicolaou Test Limitations: Cervical cytology is a screening test with limited sensitivity; regular screening is critical for cancer prevention; Pap tests are primarily effective for the diagnosis/preventi on of squamous cell carcinoma, not adenocarcinomas or other cancers. TESTING LAB LOCATION: [address] [phone] COLLECTION SITE: Client: [facility] Cytologic material (specimen) 11/06/2018 10:29 AM STATION MASTER 11/07/2018 9:47 AM STATION MASTER Hina Mendoza APRN, CNP LAB - OPTIME CLINICAL SP ECIMEN Final Result Performing Organization Address City/[facility]/ZIP Co de Phone Number COPATH * Hepatitis C Screen Reflex to HCV RNA Quant and Genotype (08/08/2016 10:44 AM STATION MASTER) Hepatitis C Antibody Nonreactive Assay performance characteristics have not been established for newborns, infants, and children NR [facility] Blood specimen (specimen) 08/08/2016 10:44 AM STATION MASTER 08/08/2016 10:45 AM STATION MASTER us Clemente Fung PA-C LAB - BLOOD ORDERABLES Final Result [facility] [address] [place] [address] * (ABNORMAL) LIPID REFLEX TO DIRECT LDL PANEL (07/14/2015 8:08 AM CDT) Cholesterol 200(H) <200 mg/dL [facility] Comment: LDL Cholesterol is the primary guide to therapy. The NCEP recommends further evaluation of: patients with cholesterol greater than 200 mg/dL if additional risk factors are present, cholesterol greater than 240 mg/dL, triglycerides greater than 150 mg/dL, or HDL less than 40 mg/dL. Triglycerides 100 0 - 150 mg/dL [facility] HDL Cholesterol 58 >50 mg/dL [facility] LDL Cholesterol Calculated 122 0 - 129 mg/dL [facility] Comment: LDL Cholesterol is the primary guide to therapy: LDL-cholesterol goal in high risk patients is <100 mg/dL and in very high risk patients is <70 mg/dL. VLDL-Cholesterol 20 0 - 30 mg/dL [facility] Cholesterol/HDL Ratio 3.4 0.0 - 5.0 [facility] Blood specimen (specimen) 07/14/2015 8:08 AM CDT 07/14/2015 8:09 AM CDT us Aracely Saleh APRN MANUFACTURING SUPERVISOR 2ND SHIFT LAB - BLOOD ORDERABLES Final Result [facility] [address] [place] [address] * COLONOSCOPY (10/17/2010 10:52 AM STATION MASTER) COLONOSCOPY Patient Name: Yasir Daly Procedure Date: [...] AM RADIOLOGY RESULTS 10/17/2010 10:5 2 AM STATION MASTER Ezra Mejia MD PROCEDURES Final Res ult [...] Most Recently Relevant to Health Maintenance Insurance [facility] FEDERAL EMPLOYEE PROGRAM [facility] FEDERAL EMPLOYEE PROGRAM [facility] PRO[facility] PROGRESSIVE Care Teams Fish Cutter Relationship Specialty Start [place] [address] [place] [id number] [facility] - General 05/20/20
--- OUTSIDE RECORDS SUMMARY | 2025-03-31 02:23 | XMS_ITS | Encounter Summary ---
Author Organization [facility] Address [address] [place] [address] Care Team Providers Care Decker Operator Name Role Phone Bonnie Nance MD Primary Care Provider + [phone] Heidi Lugo DNP Primary Care Provider Aracely Saleh APRN FBI INVESTIGATOR Primary Care Provider Clemente FungC Primary Care Provider Sheron steel No Ref-Primary, Physician Primary Care Provider James Llamas MD Unavailable + [phone] Hina Mendoza APRN FBI INVESTIGATOR Unavailable [phone] Hina Mendoza APRN FBI INVESTIGATOR Unavailable [phone] James Llamas MD Unavailable + [phone] Alyse White APRN FBI INVESTIGATOR Unavailable [phone] Jeanne Mazariegos MD Primary Care Provider + [phone] Hina Mendoza APRN FBI INVESTIGATOR Unavailable [phone] Alyse White APRN FBI INVESTIGATOR Unavailable [phone] Hina Mendoza APRN FBI INVESTIGATOR Unavailable [phone] Alyse White APRN FBI INVESTIGATOR Unavailable [phone] Alyse White APRN FBI INVESTIGATOR Unavailable [phone] Encounter Details Date Type Department Care Team (Late st Contact Info) Description 08/02/2011 MyC Medical Advice [facility] [address] [place] [address] Stas Sanz Social History Tobacco Use Types Packs/Day Years Used Date Smoking Tobacco: Never Alcohol Use Standard Drinks/Week Comments Yes 0 (1 standard drink = 0.6 oz pur e alcohol) wine hardly ever once a year Comments No Sex and Gender Information Value Date Recorded Sex Assigned at Not on file Legal Sex Female 4:20 AM CRUSHER FEEDER Gender Identity Not on file Sexual Orientation Not on file 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 file Not on file documented as of this encounter Plan of Treatment Not on file documented as of this encounter Visit Diagnoses Not on filedocumented in this encounter Care Teams Decker Operator Relationship Specialty Start Date End Date Bonnie Nance MD [address] [place] [address] PCP - General 06/24/04 05/20/12 Heidi Lugo DNP [address] [place] [address] PCP - General Family Practice 05/21/12 12/01/14 Aracely Saleh APRN CNP [address] [place] [address] PCP - General Nurse Practitioner - Adult Health 12/02/14 08/03/16 Clemente Fung PA-C [address] [place] [address] PCP - General Physician Qm Consultant 08/04/16 10/01/17 No Ref-Primary, Physician PCP - General 05/22/18 05/19/20 James Llamas MD [address] [place] [address] PCP - Assigned PCP 06/16/18 11/09/18 Hina Mendoza APRN FBI INVESTIGATOR [address] [place] [address], [place] [address] PCP - Assigned PCP 11/10/18 12/03/18 [place] [address] [place] [address] PCP - General 05/20/20 Hina Mendoza APRN FBI INVESTIGATOR [address] [place] [address], [place] [address] Assigned PCP 11/10/18 02/21/20 James Llamas MD [facility] [place] [address] Assigned PCP 06/16/18 11/09/18 Alyse White APRN FBI INVESTIGATOR [address] [place] [address], [place] [address] Assigned PCP 02/22/20 02/23/21 Hina Mendoza APRN FBI INVESTIGATOR [address] [place] [address], [place] [address] Assigned PCP 02/24/21 09/24/21 Alyse White APRN FBI INVESTIGATOR [address] [place] [address], [place] [address] Assigned PCP 09/25/21 10/08/21 Hina Mendoza APRN FBI INVESTIGATOR [address] [place] [address], [place] [address] Assigned PCP 10/09/21 11/12/21 Alyse White APRN FBI INVESTIGATOR [address] [place] [address] Assigned PCP 11/13/21 09/15/22 Alyse White APRN FBI INVESTIGATOR [address] [place] [address] Assigned PCP 11/25/22 02/16/23 documented as of this encounter
== END 2025-03-27 10:01 | disposition home or self-care (01) ==
PROVIDERS: PCP Nurse Practitioner Family; Visit Provider Internal Medicine Rheumatology
DX: M05.9 Rheumatoid arthritis with rheumatoid factor, unspecified (principal); Z79.899 Other long term (current) drug therapy
CPT/HCPCS: 82565; 84450; 84460; 85027; 86140

== ENCOUNTER 2025-04-15 08:14 | Outpatient (CLI) | payer MEDICARE, BC, SELFPAY | END 2025-04-15 08:15 | disposition home or self-care (01) | LOC: NFLDREF 04-16 18:19 | PROVIDERS: PCP Nurse Practitioner Family; Referring Provider Nurse Practitioner Family; Visit Provider Nurse Practitioner Family | DX: Z13.1 Encounter for screening for diabetes mellitus (principal); Z13.6 Encounter for screening for cardiovascular disorders | CPT/HCPCS: 80061; 82947 ==

== ENCOUNTER 2025-09-18 09:37 | Outpatient (CLI) | payer MEDICARE, BC, SELFPAY ==
[2025-09-18 13:41] LABS: Hematocrit* 46.2 % (33.0-51.0); Hemoglobin* 14.7 gm/dL (12.0-16.0); Mean Corpuscular HGB Conc 32 gm/dL (32-36); Mean Corpuscular Hemoglobin 32 pg (26-34); Mean Corpuscular Volume 102 fL (80-100); Red Blood Count* 4.55 m/uL (4.00-5.20); White Blood Count* 4.50 K/uL (4.50-11.00)
[2025-09-18 13:47] LABS: Alanine Aminotransferase* 13 U/L (4-35); Aspartate Amino Transferase* 21 U/L (12-35); Creatinine* 0.8 mg/dL (0.5-1.5); Estimated Glomerular Filt Rate 81 ml/min
[2025-09-18 13:49] LABS: Slide Review Reflex No
== END 2025-09-18 09:38 | disposition home or self-care (01) ==
LOC: NPINS 09:39
PROVIDERS: PCP Nurse Practitioner Family; Visit Provider Internal Medicine Rheumatology
DX: M05.9 Rheumatoid arthritis with rheumatoid factor, unspecified (principal); Z79.899 Other long term (current) drug therapy
CPT/HCPCS: 82565; 84450; 84460; 85027; 86140